=== PATIENT | female | born 1945 | race American Indian/Alaskan Native ===

== ENCOUNTER 2017-03-07 12:47 | Inpatient (IN) | payer MEDICARE ==
--- NOTE | 2017-03-07 13:39 | XRay Report ---
Portable chest: Dyspnea. The heart is enlarged. There is mild vascular congestion. No perivascular edema and no effusion. No pulmonary infiltrate. No change compared to June 03. The trachea is slightly bowed to the right. This finding is unchanged compared to 2013. Impression: Cardiomegaly and mild CHF.
[2017-03-07] MEDS ORDERED: NORCO 5/325 PO ONE (13:49)
[2017-03-07] MEDS ORDERED: NORMODYNE IV ONE (13:49)
--- NOTE | 2017-03-07 13:49 | Emergency Department Report ---
ED General Adult HPI - General Chief complaint: Dyspnea/Respdistress Stated complaint: SOB Time Seen by Provider: 03/07/17 13:18 Source: patient, EMS Mode of arrival: Stretcher Limitations: Other - History of Present Illness Initial comments: Patient complains of anterior chest pain and pressure. She states that she has been having this recurrently since October when her daughter . She also states that she was admitted within the last 2 weeks for similar plates. It would appear that she had a nuclear perfusion study at [facility] and that a cardiac catheterization was not recommended. She sees Dr. Whitmore for her chronic renal insufficiency. She sees Dr. Husain for her cardiomyopathy. The patient admits that she did not take her blood pressure medicine today. -: Gradual, hour(s) Location: chest Radiation: non-radiation Quality: dull Consistency: constant Improves with: none Worsens with: none Treatments Prior to Arrival: none - Related Data Home Medications Medication Instructions Recorded Confirmed Last Taken Aspirin EC [Aspirin Enteric Coated 81 mg PO DAILY 05/03/14 05/03/14 05/02/14 TAB] Atorvastatin [Lipitor] 40 mg PO DAILY 05/03/14 05/03/14 05/02/14 40mg Carvedilol 25 mg PO BID 05/03/14 05/03/14 05/03/14 0600 Clopidogrel Bisulfate [Clopidogrel] 75 mg PO DAILY 05/03/14 05/03/14 05/03/14 0700 FLUoxetine HCL [Fluoxetine HCl] 10 mg PO DAILY 05/03/14 05/03/14 05/02/14 10mg Hydralazine HCl [Apresoline TAB] 25 mg PO BID 05/03/14 05/03/14 05/03/14 25mg Insulin Aspart [NovoLOG Flexpen] 15 units SQ QAC 05/03/14 05/03/14 05/02/14 105units Insulin Glargine,Hum.rec.anlog 25 units SQ HS 05/03/14 05/03/14 05/02/14 [Lantus Solostar] 25units Isosorbide Mononitrate [Isosorbide 30 mg PO DAILY 05/03/14 05/03/14 05/02/14 Mononitrate ER] 30mg Ranolazine ER [Ranexa ER] 500 mg PO BID 05/03/14 05/03/1405/02/14 500mg Torsemide 40 mg PO DAILY 05/03/14 05/03/14 05/02/14 40mg amLODIPine/VALSARTAN [Exforge 1 tab PO DAILY 05/03/14 05/03/14 05/03/14 10-320 mg Tablet] 1 tab Allergies Allergy/AdvReac Type Severity Reaction Status Date / Time Sulfa (Sulfonamide Allergy PASS OUT, Verified 06/05/16 15:32 Antibiotics) ITCHING ED Review of Systems ROS: Stated complaint: SOB Other details as noted in HPI Constitutional: denies: chills, fever Eyes: denies: eye pain, eye discharge, vision change ENT: denies: ear pain, throat pain Respiratory: shortness of breath. denies: cough, wheezing Cardiovascular: chest pain. denies: palpitations Endocrine: no symptoms reported Gastrointestinal: denies: abdominal pain, nausea, diarrhea Genitourinary: denies: urgency, dysuria, discharge Musculoskeletal: denies: back pain, joint swelling, arthralgia Skin: denies: rash, lesions Neurological: denies: headache, weakness, paresthesias Psychiatric: denies: anxiety, depression Hematological/Lymphatic: denies: easy bleeding, easy bruising ED Past Medical Hx - Past Medical History Previous Medical History?: Yes Hx Hypertension: Yes Hx Diabetes: Yes - Surgical History Past Surgical History?: Yes Hx Coronary Stent: Yes - Social History Smoking Status: Never Smoker Substance Use Type: None - Medications Home Medications: Home Medications Medication Instructions Recorded Confirmed Last Taken Type Aspirin EC [Aspirin Enteric Coated 81 mg PO DAILY 05/03/14 05/03/14 05/02/14 History TAB] Atorvastatin [Lipitor] 40 mg PO DAILY 05/03/14 05/03/14 05/02/14 History 40mg Carvedilol 25 mg PO BID 05/03/14 05/03/14 05/03/14 History 0600 Clopidogrel Bisulfate [Clopidogrel] 75 mg PO DAILY 05/03/14 05/03/14 05/03/14 History 0700 FLUoxetine HCL [Fluoxetine HCl] 10 mg PO DAILY 05/03/14 05/03/14 05/02/14 History 10mg Hydralazine HCl [Apresoline TAB] 25 mg PO BID 05/03/14 05/03/14 05/03/14 History 25mg Insulin Aspart [NovoLOG Flexpen] 15 units SQ QAC 05/03/14 05/03/14 05/02/14 History 105units Insulin Glargine,Hum.rec.anlog 25 units SQ HS 05/03/14 05/03/14 05/02/14 History [Lantus Solostar] 25units Isosorbide Mononitrate [Isosorbide 30 mg PO DAILY 05/03/14 05/03/14 05/02/14 History Mononitrate ER] 30mg Ranolazine ER [Ranexa ER] 500 mg PO BID 05/03/14 05/03/14 05/02/14 History 500mg Torsemide 40 mg PO DAILY 05/03/14 05/03/14 05/02/14 History 40mg amLODIPine/VALSARTAN [Exforge 1 tab PO DAILY 05/03/14 05/03/14 05/03/14 History 10-320 mg Tablet] 1 tab ED Physical Exam - General Limitations: Other General appearance: alert, in no apparent distress - Head Head exam: Present: atraumatic, normocephalic - Eye Eye exam: Present: normal appearance, PERRL, EOMI. Absent: scleral icterus - ENT ENT exam: Present: mucous membranes moist - Neck Neck exam: Present: normal inspection. Absent: tenderness, meningismus - Respiratory Respiratory exam: Present: normal lung sounds bilaterally. Absent: respiratory distress - Cardiovascular Cardiovascular Exam: Present: regular rate, normal rhythm, systolic murmur. Absent: diastolic murmur, rubs, gallop - GI/Abdominal GI/Abdominal exam: Present: soft, normal bowel sounds. Absent: distended, tenderness, guarding, rebound, rigid - Extremities Exam Extremities exam: Present: other (1+ pretibial 2+ pedal edema) - Back Exam Back exam: Present: normal inspection. Absent: CVA tenderness (R), CVA tenderness (L) - Neurological Exam Neurological exam: Present: alert, oriented X3, CN II-XII intact. Absent: motor sensory deficit - Psychiatric Psychiatric exam: Present: normal affect, normal mood - Skin Skin exam: Present: warm, dry, intact, normal color, other (intact scars from previous peripheral vascular surgery both lower legs). Absent: rash ED Course Vital Signs 03/07/17 03/07/17 03/07/17 13:13 13:14 13:16 Pulse Rate 77 Respiratory 30 H Rate Blood Pressure 199/126 O2 Sat by Pulse 98 97 98 Oximetry 03/07/17 03/07/17 03/07/17 13:37 13:39 13:41 Pulse Rate 78 80 80 Respiratory 35 H 41 H 40 H Rate Blood Pressure 197/138 197/138 197/138 O2 Sat by Pulse 97 94 94 Oximetry 03/07/17 03/07/17 03/07/17 13:43 13:45 13:47 Pulse Rate 79 78 77 Respiratory 40 H 16 37 H Rate Blood Pressure 197/138 209/121 209/121 O2 Sat by Pulse 93 99 99 Oximetry 03/07/17 03/07/17 03/07/17 13:49 13:51 13:53 Pulse Rate 79 79 78 Respiratory 29 H 18 32 H Rate Blood Pressure 209/121 209/121 209/121 O2 Sat by Pulse 99 96 98 Oximetry 03/07/17 03/07/17 03/07/17 13:55 13:57 13:59 Pulse Rate 77 77 78 Respiratory 29 H 27 H 26 H Rate Blood Pressure 209/121 209/121 209/121 O2 Sat by Pulse 98 96 96 Oximetry 03/07/17 03/07/17 03/07/17 14:00 14:03 14:05 Pulse Rate 77 79 78 Respiratory 35 H 50 H 30 H Rate Blood Pressure 208/106 208/106 208/106 O2 Sat by Pulse 99 97 95 Oximetry 03/07/17 03/07/17 03/07/17 14:07 14:09 14:11 Pulse Rate 78 77 78 Respiratory 26 H 35 H 36 H Rate Blood Pressure 208/106 208/106 208/106 O2 Sat by Pulse 98 98 93 Oximetry 03/07/17 03/07/17 03/07/17 14:13 14:15 14:17 Pulse Rate 79 79 79 Respiratory 40 H 46 H 43 H Rate Blood Pressure 208/106 202/134 202/134 O2 Sat by Pulse 94 95 96 Oximetry 03/07/17 03/07/17 03/07/17 14:19 14:21 14:23 Pulse Rate 77 77 77 Respiratory 29 H 34 H 24 Rate Blood Pressure 202/134 202/134 202/134 O2 Sat by Pulse 97 98 98 Oximetry 03/07/17 03/07/17 03/07/17 14:25 14:27 14:29 Pulse Rate 77 76 77 Respiratory 29 H 33 H 38 H Rate Blood Pressure 202/134 202/134 202/134 O2 Sat by Pulse 97 97 95 Oximetry 03/07/17 03/07/17 03/07/17 14:30 14:32 14:33 Pulse Rate 79 77 58 L Respiratory 36 H 18 Rate Blood Pressure 196/134 202/134 196/134 O2 Sat by Pulse 97 99 Oximetry 03/07/17 03/07/17 03/07/17 14:35 14:37 14:39 Pulse Rate 57 L 57 L 55 L Respiratory 18 13 30 H Rate Blood Pressure 196/134 196/134 196/134 O2 Sat by Pulse 100 99 99 Oximetry 03/07/17 03/07/17 03/07/17 14:41 14:43 14:45 Pulse Rate 59 L 56 L 59 L Respiratory 18 34 H 38 H Rate Blood Pressure 196/134 196/134 196/134 O2 Sat by Pulse 98 99 98 Oximetry 03/07/17 03/07/17 03/07/17 14:46 14:49 14:51 Pulse Rate 57 L 60 61 Respiratory 21 33 H 32 H Rate Blood Pressure 166/98 166/98 166/98 O2 Sat by Pulse 99 94 99 Oximetry 03/07/17 03/07/17 03/07/17 14:53 14:55 14:57 Pulse Rate 59 L 61 60 Respiratory 36 H 43 H 25 H Rate Blood Pressure 166/98 166/98 166/98 O2 Sat by Pulse 99 94 98 Oximetry 03/07/17 03/07/17 03/07/17 14:59 15:00 15:03 Pulse Rate 61 61 61 Respiratory 27 H 33 H 27 H Rate Blood Pressure 166/98 166/92 166/92 O2 Sat by Pulse 97 99 92 Oximetry 03/07/17 03/07/17 03/07/17 15:05 15:07 15:09 Pulse Rate 63 64 62 Respiratory 20 39 H 28 H Rate Blood Pressure 166/92 166/92 166/92 O2 Sat by Pulse 97 97 99 Oximetry 03/07/17 03/07/17 03/07/17 15:11 15:13 15:15 Pulse Rate 65 63 63 Respiratory 18 26 H 23 Rate Blood Pressure 166/92 166/92 152/88 O2 Sat by Pulse 99 98 98 Oximetry - Reevaluation(s) Reevaluation #1: Patient given aspirin, Nitropaste, labetalol. She is referred to Dr. Alex of the hospitalist service further care and management as an inpatient. 03/07/17 15:43 ED Medical Decision Making - Lab Data Result diagrams: 03/07/17 13:18 03/07/17 13:18 Laboratory Results - last 24 hr 03/07/17 03/07/17 03/07/17 13:18 13:18 13:23 WBC 9.0 RBC 4.71 Hgb 12.6 Hct 40.3 MCV 86 MCH 27 L MCHC 31 RDW 18.1 H Plt Count 272 Lymph % (Auto) 18.5 [place] % (Auto) 3.1 Eos % (Auto) 0.2 Baso % (Auto) 0.7 Lymph # 1.7 [place] # 0.3 Eos # 0.0 Baso # 0.1 Seg Neutrophils % 77.5 H Seg Neutrophils # 6.9 PT 14.0 INR 1.03 APTT 32.0 Sodium 146 H Potassium 4.0 Chloride 106.8 Carbon Dioxide 24 Anion Gap 19 BUN 26 H Creatinine 1.9 H Estimated GFR 32 BUN/Creatinine Ratio 14 Glucose 120 H Calcium 8.7 Phosphorus Magnesium Total Bilirubin Direct Bilirubin AST ALT Alkaline Phosphatase Troponin T 0.019 NT-Pro-B Natriuret Pep 88217 H Total Protein Albumin Albumin/Globulin Ratio 03/07/17 13:23 WBC RBC Hgb Hct MCV MCH MCHC RDW Plt Count Lymph % (Auto) [place] % (Auto) Eos % (Auto) Baso % (Auto) Lymph # [place] # Eos # Baso # Seg Neutrophils % Seg Neutrophils # PT INR APTT Sodium Potassium Chloride Carbon Dioxide Anion Gap BUN Creatinine Estimated GFR BUN/Creatinine Ratio Glucose Calcium Phosphorus 3.60 Magnesium 2.30 Total Bilirubin 0.60 Direct Bilirubin < 0.2 AST 36 ALT 43 Alkaline Phosphatase 189 H Troponin T NT-Pro-B Natriuret Pep Total Protein 7.2 Albumin 3.4 L Albumin/Globulin Ratio 0.9 - EKG Data -: EKG Interpreted by Me EKG shows normal: sinus rhythm Rate: normal - EKG Data When compared to previous EKG there are: no significant change Interpretation: LVH (LVH is suggestive), other (left bundle-branch block/ intraventricular conduction delay) - Radiology Data Radiology results: report reviewed interpreted by me: Poor inspiration but radiologist didn't suggestive of early CHF Critical care attestation.: If time is entered above; I have spent that time in minutes in the direct care of this critically ill patient, excluding procedure time. ED Disposition Clinical Impression: CKD (chronic kidney disease), stage III, Accelerated hypertension, Intraventricular conduction delay Chest pain Qualifiers: Chest pain type: unspecified Qualified Code(s): R07.9 - Chest pain, unspecified CHF (congestive heart failure) Qualifiers: Congestive heart failure type: combined Congestive heart failure chronicity: acute on chronic Qualified Code(s): I50.43 - Acute on chronic combined systolic (congestive) and diastolic (congestive) heart failure Disposition: -09 OP ADMIT IP TO THIS HOSP Is pt being admited?: Yes Does the pt Need Aspirin: Yes Condition: Stable Instructions: Hypertension (ED), Chest Pain (ED) Referrals: PRIMARY CARE, [Primary Care Provider] - 3-5 Days Time of Disposition: 15:47
[2017-03-07 13:51] LABS: Basophils % (Auto) 0.7 % (0.0-1.8); Eosinophils % (Auto) 0.2 % (0.0-4.3); Hematocrit 40.3 % (30.3-42.9); Hemoglobin 12.6 gm/dl (10.1-14.3); Mean Corpuscular HGB Conc 31 % (30-34); Mean Corpuscular Hemoglobin 27 pg (28-32); Mean Corpuscular Volume 86 fl (79-97); Platelet Count 272 K/mm3 (140-440); Red Blood Count 4.71 M/mm3 (3.65-5.03); Red Cell Distribution Width 18.1 % (13.2-15.2)
--- NOTE | 2017-03-07 13:53 | History and Physical Report ---
History of Present Illness Chief complaint: I cant breathe, my legs are swollen too History of present illness: 71 YO Female with HTN, DM, Metabolic Syndrome, Obesity, Systolic CHF(EF 30%), Pulmonary HTN, CAD S/P Stent placement presents to ED for evaluation. Pt states that she has experienced shortness of breath and leg swelling over the past two weeks with worsening symptoms over the past day. Pt acknowledges orthopnea, PND as well and chest pressure and decreased exercise tolerance. Pt denies fever, chills, CP, Palpitations, NVD, Syncope, unilateral leg swelling, calf pain, hemoptysis,medication noncompliance. Pt acknowledges dietary noncompliance, and not taking her weight daily and monitoring fluid intake. Pt seen and evaluated in ED and found to be in respiratory distress and placed on supplemental oxygen. Pt is able to protect her airway. Past History Past Medical History: CAD, diabetes, heart failure, hypertension, other ( PUlmonary Hypertension) Past Surgical History: Other (Stent placement) Social history: , lives with family. denies: smoking, alcohol abuse, prescription drug abuse Medications and Allergies Allergies Allergy/AdvReac Type Severity Reaction Status Date / Time Sulfa (Sulfonamide Allergy PASS OUT, Verified 06/05/16 15:32 Antibiotics) ITCHING Home Medications Medication Instructions Recorded Confirmed Last Taken Type Aspirin EC [Aspirin Enteric Coated 81 mg PO DAILY 05/03/14 03/07/17 05/02/14 History TAB] Atorvastatin [Lipitor] 40 mg PO DAILY 05/03/14 03/07/17 05/02/14 History 40mg Carvedilol 25 mg PO BID 05/03/14 03/07/17 05/03/14 History 0600 Hydralazine HCl [Apresoline TAB] 25 mg PO BID 05/03/14 03/07/17 05/03/14 History 25mg Insulin Aspart [NovoLOG Flexpen] 5 units SQ QAC 05/03/14 03/07/17 05/02/14 History 105units Insulin Glargine,Hum.rec.anlog 15 units SQ HS 05/03/14 03/07/17 05/02/14 History [Lantus Solostar] 25units Torsemide 40 mg PO DAILY 05/03/14 03/07/17 05/02/14 History 40mg ALBUTEROL NEB's [Proventil 0.083% 3 ml INHALATION TID PRN 03/07/17 03/07/17 Unknown History NEBS] Arformoterol Nebu [Brovana Nebu] 2 ml INHALATION BID 03/07/17 03/07/17 Unknown History Fluticasone/Vilanterol [Breo 1 inhalation PO QDAY 03/07/17 03/07/17 Unknown History Ellipta 100-25 Mcg INH] Losartan [Cozaar] 50 mg PO QDAY 03/07/17 03/07/17 Unknown History Nortriptyline [Pamelor] 10 mg PO QHS 03/07/17 03/07/17 Unknown History Omeprazole [Omeprazole] 40 mg PO QDAC 03/07/17 03/07/17 Unknown History Ranolazine [Ranexa] 1,000 mg PO BID 03/07/17 03/07/17 Unknown History clonazePAM [Klonopin] 1 mg PO QDAY PRN 03/07/17 03/07/17 Unknown History Review of Systems Constitutional: no weight loss, no weight gain, no fever, no chills, no sweats Ears, nose, mouth and throat: no ear pain, no ear discharge, no tinnitis, no decreased hearing, no nose pain, no nasal congestion, no nasal discharge Breasts: no change in shape, no swelling, no mass Cardiovascular: orthopnea, shortness of breath, dyspnea on exertion, paroxysmal nocturnal dyspnea, leg edema, no chest pain, no palpitations, no edema, no syncope Respiratory: no cough, no cough with sputum, no excessive sputum, no hemoptysis Gastrointestinal: no abdominal pain, no nausea, no vomiting, no diarrhea Genitourinary Female: no pelvic pain, no flank pain Rectal: no pain, no incontinence, no bleeding Musculoskeletal: no neck stiffness, no neck pain, no shooting arm pain, no arm numbness/tingling, no low back pain, no shooting leg pain, no leg numbness/ tingling Integumentary: no rash, no pruritis, no redness, no sores, no wounds Neurological: no head injury, no paralysis, no weakness, no parathesias, no numbness, no tingling, no seizures, no syncope Endocrine: no cold intolerance, no heat intolerance, no polyphagia, no excessive thirst Hematologic/Lymphatic: no easy bruising, no easy bleeding Allergic/Immunologic: no allergic rhinitis, no wheezing Exam - Constitutional Vitals: Temp Pulse Resp BP Pulse Ox 77 30 H 199/126 98 03/07/17 13:16 03/07/17 13:16 03/07/17 13:16 03/07/17 13:16 General appearance: Present: mild distress - EENT Eyes: Present: PERRL ENT: hearing intact, clear oral mucosa - Neck Neck: Present: supple, normal ROM - Respiratory Respiratory: bilateral: diminished, rhonchi - Cardiovascular Heart Sounds: Present: S1 & S2. Absent: rub, click - Extremities Extremities: pulses symmetrical, No edema Extremity abnormal: edema Peripheral Pulses: within normal limits - Abdominal General gastrointestinal: Present: soft, non-tender, non-distended, normal bowel sounds Female genitourinary: Present: normal - Integumentary Integumentary: Present: clear, warm, dry - Musculoskeletal Musculoskeletal: gait normal, strength equal bilaterally - Psychiatric Psychiatric: appropriate mood/affect, intact judgment & insight - Neurologic Neurologic: CNII-XII intact, moves all extremities Results - Labs CBC & Chem 7: 03/07/17 13:18 03/07/17 13:18 Labs: Abnormal lab results 03/07/17 Range/Units 13:18 MCH 27 L (28-32) pg RDW 18.1 H (13.2-15.2) % Seg Neutrophils % 77.5 H (40.0-70.0) % Assessment and Plan - Patient Problems (1) CHF (congestive heart failure) Current Visit: Yes Status: Acute Qualifiers: Congestive heart failure type: combined Congestive heart failure chronicity : acute on chronic Qualified Code(s): I50.43 - Acute on chronic combined systolic (congestive) and diastolic (congestive) heart failure Plan to address problem: Fluid restriction, Afterload reduction, monitor uop q shift, negative fluid balance, daily weight, serial cardiac enzymes, telemetry monitoring, Cardiology team consulted, Pt education regarding dietary compliance, low sodium diet, diuretic therapy (2) Acute respiratory failure Current Visit: Yes Status: Acute Qualifiers: Respiratory failure complication: R Plan to address problem: Supplemental oxygen, nebs, treat CHF, NIPPV as clinically indicated, (3) CAD (coronary artery disease) Current Visit: Yes Status: Acute Qualifiers: Coronary Disease-Associated Artery/Lesion type: [place] artery [place] vs. transplanted heart: [place] heart Associated angina: without angina Qualified Code(s): I25.10 - Atherosclerotic heart disease of [place] coronary artery without angina pectoris Plan to address problem: continue medical management, lipid panel, supportive care. (4) Diabetes Current Visit: Yes Status: Acute Qualifiers: Diabetes mellitus type: D Diabetes mellitus complication status: D Diabetes mellitus complication detail: D Diabetic retinopathy severity: D Proliferative retinopathy type: P Diabetes mellitus macular edema: D Diabetes mellitus intermediate frame tender insulin use: D Laterality: L Chronic kidney disease stage: C Plan to address problem: ADA diet, insulin accu check (5) DVT prophylaxis Current Visit: Yes Status: Acute
[2017-03-07 13:57] LABS: INR 1.03 (0.87-1.13)
[2017-03-07 14:14] LABS: Calcium 8.7 mg/dL (8.4-10.2); Chloride 106.8 mmol/L (98-107)
[2017-03-07 14:16] LABS: Alanine Aminotransferase 43 units/L (7-56); Albumin 3.4 g/dL (3.9-5); Albumin/Globulin Ratio 0.9 %; Alkaline Phosphatase 189 units/L (35-129); Total Protein 7.2 g/dL (6.3-8.2)
[2017-03-07 14:17] LABS: Bilirubin,Direct < 0.2 mg/dL (0-0.2)
[2017-03-07] MEDS ORDERED: MILK OF MAGNESIA PO PRN (15:46)
[2017-03-07] MEDS ORDERED: ZOFRAN IV PRN (15:46)
[2017-03-07] MEDS ORDERED: DULCOLAX PR PRN (15:46)
[2017-03-07] MEDS ORDERED: BABY ASPIRIN PO ONE (15:48)
[2017-03-07] MEDS ORDERED: NON-FORMULARY (Insulin Aspart [Novolog Flexpen] 15 UNITS) SQ SCH (16:30)
[2017-03-07] MEDS ORDERED: BABY ASPIRIN ONE (16:58)
[2017-03-07] MEDS ORDERED: LASIX ONE (19:00)
[2017-03-07] MEDS: LASIX IV SCH (19:00)
[2017-03-07] MEDS ORDERED: INSULIN GLARGINE HUM REC ANLOG 25 UNIT SQ SCH (22:00)
[2017-03-07] MEDS ORDERED: LEVEMIR SUB-Q SCH (22:00)
[2017-03-07] MEDS ORDERED: NON-FORMULARY (Hydralazine Hcl [Apresoline Tab] 25 MG) PO SCH (22:00)
[2017-03-07] MEDS: APRESOLINE PO SCH (22:44)
[2017-03-07] MEDS: RANEXA ER PO SCH (22:44)
[2017-03-07] MEDS: COREG PO SCH (22:45)
[2017-03-08] MEDS: LASIX IV SCH ×2 (05:51→19:04)
[2017-03-08] MEDS: PROVENTIL IH PRN ×2 (09:40→14:00)
[2017-03-08] MEDS ORDERED: VALSARTAN PO SCH (10:00)
[2017-03-08] MEDS ORDERED: TORSEMIDE 40 MG PO SCH (10:00)
[2017-03-08] MEDS ORDERED: AMLODIPINE PO SCH (10:00)
[2017-03-08] MEDS ORDERED: FLUOXETINE HCL 10 MG PO SCH (10:00)
[2017-03-08] MEDS: HALFPRIN EC PO SCH (10:37)
[2017-03-08] MEDS: RANEXA ER PO SCH ×2 (10:37→22:20)
[2017-03-08] MEDS: DIOVAN PO SCH (10:38)
[2017-03-08] MEDS: IMDUR PO SCH (10:40)
[2017-03-08] MEDS: PLAVIX PO SCH (10:40)
[2017-03-08] MEDS: NORVASC PO SCH (10:41)
[2017-03-08] MEDS: APRESOLINE PO SCH ×2 (10:41→22:21)
[2017-03-08] MEDS: COREG PO SCH ×2 (10:42→22:21)
[2017-03-08] MEDS: PROzac PO SCH ×2 (10:43→10:49)
[2017-03-08] MEDS: NOVOLOG SUB-Q SCH ×4 (10:47→22:22)
--- NOTE | 2017-03-08 11:06 | Consultation ---
History of Present Illness Consult date: 03/08/17 Requesting physician: KEV BREAUX Consult reason: congestive heart failure History of present illness: 71 YO Female with history of ischemic cardiomyopathy EF 30% , CAD status post multiple PCI , HTN, DM, Obesity, spelled currently admitted to the hospital with progressive shortness of breath. Pt reports worsening shortness of breath and leg swelling over the past two weeks with acute worsening symptoms over the past day. Pt acknowledges orthopnea, PND as well and chest pressure and decreased exercise tolerance. Past History Past Medical History: CAD, diabetes, heart failure, hypertension, other ( PUlmonary Hypertension) Past Surgical History: Other (Stent placement) Social history: , lives with family. denies: smoking, alcohol abuse, prescription drug abuse Medications and Allergies Allergies Allergy/AdvReac Type Severity Reaction Status Date / Time Sulfa (Sulfonamide Allergy PASS OUT, Verified 06/05/16 15:32 Antibiotics) ITCHING Home Medications Medication Instructions Recorded Confirmed Last Taken Type Aspirin EC [Aspirin Enteric Coated 81 mg PO DAILY 05/03/14 03/07/17 05/02/14 History TAB] Atorvastatin [Lipitor] 40 mg PO DAILY 05/03/14 03/07/17 05/02/14 History 40mg Carvedilol 25 mg PO BID 05/03/14 03/07/17 05/03/14 History 0600 Hydralazine HCl [Apresoline TAB] 25 mg PO BID 05/03/14 03/07/17 05/03/14 History 25mg Insulin Aspart [NovoLOG Flexpen] 5 units SQ QAC 05/03/14 03/07/17 05/02/14 History 105units Insulin Glargine,Hum.rec.anlog 15 units SQ HS 05/03/14 03/07/17 05/02/14 History [Lantus Solostar] 25units Torsemide 40 mg PO DAILY 05/03/14 03/07/17 05/02/14 History 40mg ALBUTEROL NEB's [Proventil 0.083% 3 ml INHALATION TID PRN 03/07/17 03/07/17 Unknown History NEBS] Arformoterol Nebu [Brovana Nebu] 2 ml INHALATION BID 03/07/17 03/07/17 Unknown History Fluticasone/Vilanterol [Breo 1 inhalation PO QDAY 03/07/17 03/07/17 Unknown History Ellipta 100-25 Mcg INH] Losartan [Cozaar] 50 mg PO QDAY 03/07/17 03/07/17 Unknown History Nortriptyline [Pamelor] 10 mg PO QHS 03/07/17 03/07/17 Unknown History Omeprazole [Omeprazole] 40 mg PO QDAC 03/07/17 03/07/17 Unknown History Ranolazine [Ranexa] 1,000 mg PO BID 03/07/17 03/07/17 Unknown History clonazePAM [Klonopin] 1 mg PO QDAY PRN 03/07/17 03/07/17 Unknown History Active Meds: Active Medications Acetaminophen (Tylenol) 650 mg PO Q4H PRN PRN Reason: Pain MILD(1-3)/Fever >100.5/BERRY Albuterol (Proventil) 2.5 mg IH Q4HRT PRN PRN Reason: Shortness Of Breath Last Admin: 03/08/17 09:40 Dose: 2.5 mg Amlodipine Besylate (Norvasc) 10 mg PO DAILY [facility] Last Admin: 03/08/17 10:41 Dose: 10 mg Aspirin (Halfprin Ec) 81 mg PO DAILY [facility] Last Admin: 03/08/17 10:37 Dose: 81 mg Atorvastatin Calcium (Lipitor) 40 mg PO DAILY [facility] Last Admin: 03/08/17 10:43 Dose: 40 mg Bisacodyl (Dulcolax) 10 mg ID QDAY PRN PRN Reason: Constipation unrelieved by MOM Carvedilol (Coreg) 25 mg PO BID [facility] Last Admin: 03/08/17 10:42 Dose: 25 mg Clopidogrel Bisulfate (Plavix) 75 mg PO DAILY [facility] Last Admin: 03/08/17 10:40 Dose: Not Given Fluoxetine HCl (Prozac) 10 mg PO QDAY [facility] Last Admin: 03/08/17 10:49 Dose: Not Given Furosemide (Lasix) 20 mg IV 0600,1800 [facility] Last Admin: 03/08/17 05:51 Dose: 20 mg Hydralazine HCl (Apresoline) 25 mg PO BID [facility] Last Admin: 03/08/17 10:41 Dose: 25 mg Insulin Aspart (Novolog) 15 units SUB-Q AC [facility] Last Admin: 03/08/17 10:47 Dose: Not Given Insulin Detemir (Levemir) 25 units SUB-Q QHS [facility] Last Admin: 03/07/17 22:45 Dose: Not Given Isosorbide Mononitrate (Imdur) 30 mg PO DAILY [facility] Last Admin: 03/08/17 10:40 Dose: 30 mg Magnesium Hydroxide (Milk Of Magnesia) 30 ml PO Q4H PRN PRN Reason: Constipation Miscellaneous Medication (Torsemide [Torsemide]) 40 mg PO DAILY [facility] Ondansetron HCl (Zofran) 4 mg IV Q8H PRN PRN Reason: N/V unrelieved by Karyna Ranolazine (Ranexa Er) 500 mg PO BID [facility] Last Admin: 03/08/17 10:37 Dose: 500 mg Valsartan (Diovan) 320 mg PO QDAY [facility] Last Admin: 03/08/17 10:38 Dose: 320 mg Review of Systems All systems: negative (as mentioned in the H&P) Physical Examination Vital Signs Pulse Ox 98 03/07/17 13:13 Narrative exam: Physical examination General.: Moderately obese mild distress noted HEENT: Moist mucous membranes, extraocular muscles intact, no lymphadenopathy Neck: supple mildly elevated JVP. Cardiac: S1-S2 heard Lungs: Poor air entry with faint bilateral crackles Abdomen: soft , nontender, nondistended, bowel sounds positive Extremities: 2+ bilateral edema Skin: no rash or lesions Neurologic: no gross focal deficits, hard of hearing Psych: appropriate behavior, appropriate mood, corporative, judgment intact Results 03/07/17 13:18 03/07/17 13:18 EKG interpretations - Telemetry EKG Rhythm: Sinus Rhythm Assessment and Plan Impression 1. Shortness of breath and edema symptoms clinical exam and laboratory findings suggestive of acute on chronic systolic congestive heart failure. Exacerbation factors include dietary and medical noncompliance. 2. Ischemic cardiomyopathy stage B with class III symptoms 3. Coronary angioplasty status. PCI of the right coronary artery patent by recent cardiac 4. Coronary artery disease without angina pectoris class II symptoms 5. Moderate to severe pulmonary hypertension most likely group to pulmonary hypertension 6. Chronic renal failure Plan Agree with IV diuretics and increase dose as tolerated Continue Coreg and hydralazine and Isordil Monitor renal function At some point but renal function stabilizes and 1.7-24 had low-dose OTTO inhibitor. Patient will be evaluated for an AICD as an outpatient
--- NOTE | 2017-03-08 14:27 | Progress Note ---
Assessment and Plan Assessment and plan: 71 YO Female with HTN, DM, Metabolic Syndrome, Obesity, Systolic CHF(EF 30%), Pulmonary HTN, CAD S/P Stent placement presents to ED for evaluation. Pt states that she has experienced shortness of breath and leg swelling over the past two weeks with worsening symptoms over the past day. Pt acknowledges orthopnea, PND as well and chest pressure and decreased exercise tolerance. Pt denies fever, chills, CP, Palpitations, NVD, Syncope, unilateral leg swelling, calf pain, hemoptysis,medication noncompliance. Pt acknowledges dietary noncompliance, and not taking her weight daily and monitoring fluid intake. Pt seen and evaluated in ED and found to be in respiratory distress and placed on supplemental oxygen. Pt is able to protect her airway. Acute exacerbation of chronic systolic CHF Ischemic cardiomyopathy continue iv diuretics, cardiology input appreciateduretics, optimize meds, As per cardiology, patient be evaluated as an outpatient for AICD Pulmonary hypertension continue ARB Acute hypoxic respiratory failure Was likely due to CHF exacerbation, continue oxygen supplementation and treat underlying cause CAD (coronary artery disease) She denies chest pain, continue home medications medications Hypoglycemia/Diabetes Patient admits to hypoglycemia at home, Hold all home insulins and only do sliding scale for now, check an A1c Chronic renal failure stage IV -Give diuretics judiciously, avoid nephrotoxic medications -Creatinine is at baseline History Interval history: continues to have sob, orthopnea Admits to having low glc at home, sometimes as low as 17 especially in the am Review of systems Constitutional: No fevers, no malaise, no joint pains CVS: No chest pain, admits orthopnea, ESQUIVEL and LE edema GI: No abdominal pain, no diarrhea, no vomiting, no constipation Respiratory: No shortness of breath, no wheezing, no coughing or Hospitalist Physical - Physical exam Narrative exam: General.: Appears well, no distress, nontoxic HEENT: Moist mucous membranes, extraocular muscles intact, no lymphadenopathy Neck: supple Cardiac: S1-S2 heard Lungs: Bibasilar crackles Abdomen: soft , nontender, nondistended, bowel sounds positive Extremities: no edema clubbing or cyanosis Skin: One plus bipedal edema Neurologic: no gross focal deficits Psych: appropriate behavior, appropriate mood, corporative, judgment intact - Constitutional Vitals: Temp Pulse Resp BP Pulse Ox 98.0 F 61 16 113/43 96 03/08/17 12:11 03/08/17 12:47 03/08/17 12:11 03/08/17 12:11 03/08/17 12:12 General appearance: Present: mild distress Results - Labs CBC & Chem 7: 03/07/17 13:18 03/07/17 13:18 Labs: Laboratory Last Values WBC 9.0 K/mm3 (4.5-11.0) 03/07/17 13:18 RBC 4.71 M/mm3 (3.65-5.03) 03/07/17 13:18 Hgb 12.6 gm/dl (10.1-14.3) 03/07/17 13:18 Hct 40.3 % (30.3-42.9) 03/07/17 13:18 MCV 86 fl (79-97) 03/07/17 13:18 MCH 27 pg (28-32) L 03/07/17 13:18 MCHC 31 % (30-34) 03/07/17 13:18 RDW 18.1 % (13.2-15.2) H 03/07/17 13:18 Plt Count 272 K/mm3 (140-440) 03/07/17 13:18 Lymph % (Auto) 18.5 % (13.4-35.0) 03/07/17 13:18 [place] % (Auto) 3.1 % (0.0-7.3) 03/07/17 13:18 Eos % (Auto) 0.2 % (0.0-4.3) 03/07/17 13:18 Baso % (Auto) 0.7 % (0.0-1.8) 03/07/17 13:18 Lymph # 1.7 K/mm3 (1.2-5.4) 03/07/17 13:18 [place] # 0.3 K/mm3 (0.0-0.8) 03/07/17 13:18 Eos # 0.0 K/mm3 (0.0-0.4) 03/07/17 13:18 Baso # 0.1 K/mm3 (0.0-0.1) 03/07/17 13:18 Seg Neutrophils % 77.5 % (40.0-70.0) H 03/07/17 13:18 Seg Neutrophils # 6.9 K/mm3 (1.8-7.7) 03/07/17 13:18 PT 14.0 Sec. (12.2-14.9) 03/07/17 13:23 INR 1.03 (0.87-1.13) 03/07/17 13:23 APTT 32.0 Sec. (24.2-36.6) 03/07/17 13:23 Sodium 146 mmol/L (137-145) H 03/07/17 13:18 Potassium 4.0 mmol/L (3.6-5.0) 03/07/17 13:18 Chloride 106.8 mmol/L (98-107) 03/07/17 13:18 Carbon Dioxide 24 mmol/L (22-30) 03/07/17 13:18 Anion Gap 19 mmol/L 03/07/17 13:18 BUN 26 mg/dL (7-17) H 03/07/17 13:18 Creatinine 1.9 mg/dL (0.7-1.2) H 03/07/17 13:18 Estimated GFR 32 ml/min 03/07/17 13:18 BUN/Creatinine Ratio 14 % 03/07/17 13:18 Glucose 120 mg/dL (65-100) H 03/07/17 13:18 POC Glucose 91 (70-105) 03/07/17 22:07 Calcium 8.7 mg/dL (8.4-10.2) 03/07/17 13:18 Phosphorus 3.60 mg/dL (2.5-4.5) 03/07/17 13:23 Magnesium 2.30 mg/dL (1.7-2.3) 03/07/17 13:23 Total Bilirubin 0.60 mg/dL (0.1-1.2) 03/07/17 13:23 Direct Bilirubin < 0.2 mg/dL (0-0.2) 03/07/17 13:23 AST 36 units/L (5-40) 03/07/17 13:23 ALT 43 units/L (7-56) 03/07/17 13:23 Alkaline Phosphatase 189 units/L (35-129) H 03/07/17 13:23 Troponin T 0.019 ng/mL (0.00-0.029) 03/07/17 13:18 NT-Pro-B Natriuret Pep 02698 pg/mL (0-900) H 03/07/17 13:18 Total Protein 7.2 g/dL (6.3-8.2) 03/07/17 13:23 Albumin 3.4 g/dL (3.9-5) L 03/07/17 13:23 Albumin/Globulin Ratio 0.9 % 03/07/17 13:23
[2017-03-08] MEDS ORDERED: D50W (25GM) Syringe IV PRN (15:32)
[2017-03-08] MEDS ORDERED: PROVENTIL IH PRN (20:00)
[2017-03-09] MEDS: LASIX IV SCH ×2 (06:09→19:12)
[2017-03-09] MEDS: NOVOLOG SUB-Q SCH ×5 (08:44→22:42)
--- NOTE | 2017-03-09 10:29 | Progress Note ---
Assessment and Plan Impression 1. Shortness of breath and edema symptoms clinical exam and laboratory findings suggestive of acute on chronic systolic congestive heart failure. Exacerbation factors include dietary and medical noncompliance. 2. Ischemic cardiomyopathy stage B with class III symptoms 3. Coronary angioplasty status. PCI of the right coronary artery patent by recent cardiac cath 4. Coronary artery disease without angina pectoris class II symptoms 5. Moderate to severe pulmonary hypertension most likely group 2 pulmonary hypertension 6. Chronic renal failure Plan Agree with IV diuretics Continue Coreg and hydralazine and Isordil Monitor renal function At some point but renal function stabilizes and 1.7-24 had low-dose OTTO inhibitor. Patient will be evaluated for an AICD as an outpatient Subjective Date of service: 03/09/17 Principal diagnosis: congestive heart failure Interval history: Patient looks and feels much better today Objective Vital Signs Temp Pulse Pulse Pulse Resp Resp BP 03/09/17 08:40 62 03/09/17 08:39 97.5 F L 63 22 140/75 03/09/17 05:30 98.3 F 61 20 03/08/17 23:45 97.6 F 56 L 21 96/43 03/08/17 22:52 69 18 03/08/17 22:45 89 16 03/08/17 22:21 63 123/64 03/08/17 22:00 60 63 22 03/08/17 21:22 03/08/17 19:10 98.4 F 62 22 123/64 03/08/17 17:23 58 L 120/62 03/08/17 15:43 03/08/17 12:47 61 03/08/17 12:12 53 L 03/08/17 12:11 98.0 F 53 L 16 113/43 03/08/17 12:05 98.0 F 61 16 137/66 03/08/17 10:56 63 03/08/17 10:42 63 160/92 03/08/17 10:41 63 160/92 03/08/17 10:40 63 160/92 03/08/17 10:38 63 160/92 BP Pulse Ox 03/09/17 08:40 99 03/09/17 08:39 99 03/09/17 05:30 120/57 98 03/08/17 23:45 98 03/08/17 22:52 03/08/17 22:45 03/08/17 22:21 03/08/17 22:00 99 03/08/17 21:22 98 03/08/17 19:10 97 03/08/17 17:23 98 03/08/17 15:43 98 03/08/17 12:47 03/08/17 12:12 96 03/08/17 12:11 97 03/08/17 12:05 99 03/08/17 10:56 03/08/17 10:42 03/08/17 10:41 03/08/17 10:40 03/08/17 10:38 - Physical Examination Narrative exam: Physical examination General.: Moderately obese mild distress noted HEENT: Moist mucous membranes, extraocular muscles intact, no lymphadenopathy Neck: supple mildly elevated JVP. Cardiac: S1-S2 heard Lungs: Poor air entry with faint bilateral crackles Abdomen: soft , nontender, nondistended, bowel sounds positive Extremities: 2+ bilateral edema Skin: no rash or lesions Neurologic: no gross focal deficits, hard of hearing Psych: appropriate behavior, appropriate mood, corporative, judgment intact
[2017-03-09] MEDS: PROVENTIL IH SCH ×3 (10:30→20:43)
[2017-03-09] MEDS: IMDUR PO SCH (11:23)
[2017-03-09] MEDS: COREG PO SCH ×2 (11:25→22:41)
[2017-03-09] MEDS: RANEXA ER PO SCH ×2 (11:25→22:40)
[2017-03-09] MEDS: PROzac PO SCH (11:25)
[2017-03-09] MEDS: DIOVAN PO SCH (11:26)
[2017-03-09] MEDS: APRESOLINE PO SCH ×2 (11:26→22:40)
[2017-03-09] MEDS: HALFPRIN EC PO SCH (11:26)
[2017-03-09] MEDS: PLAVIX PO SCH (11:27)
[2017-03-09] MEDS: NORVASC PO SCH (11:27)
--- NOTE | 2017-03-09 13:44 | Progress Note ---
Assessment and Plan Assessment and plan: 71 YO Female with HTN, DM, Metabolic Syndrome, Obesity, Systolic CHF(EF 30%), Pulmonary HTN, CAD S/P Stent placement presents to ED for evaluation. Pt states that she has experienced shortness of breath and leg swelling over the past two weeks with worsening symptoms over the past day. Pt acknowledges orthopnea, PND as well and chest pressure and decreased exercise tolerance. Pt denies fever, chills, CP, Palpitations, NVD, Syncope, unilateral leg swelling, calf pain, hemoptysis,medication noncompliance. Pt acknowledges dietary noncompliance, and not taking her weight daily and monitoring fluid intake. Pt seen and evaluated in ED and found to be in respiratory distress and placed on supplemental oxygen. Pt is able to protect her airway. Acute exacerbation of chronic systolic CHF, EF 30%, ICM Ischemic cardiomyopathy continue iv diuretics, cardiology input appreciated, continue diuretics, optimize meds, As per cardiology, patient be evaluated as an outpatient for AICD Pulmonary hypertension continue ARB Acute hypoxic respiratory failure Was likely due to CHF exacerbation, continue oxygen supplementation and treat underlying cause CAD (coronary artery disease) She denies chest pain, continue home medications medications Hypoglycemia/Diabetes Patient admits to hypoglycemia at home, hold lantus, only giving pre-meal insulin and SSI Chronic renal failure stage IV -Give diuretics judiciously, avoid nephrotoxic medications -Creatinine is at baseline dvt ppx -lovenox renally dosed History Interval history: continues to have sob, orthopnea Admits to having low glc at home, sometimes as low as 17 especially in the am Review of systems Constitutional: No fevers, no malaise, no joint pains CVS: No chest pain, admits orthopnea, ESQUIVEL and LE edema GI: No abdominal pain, no diarrhea, no vomiting, no constipation Respiratory: some SOB, no wheezing, no coughing Hospitalist Physical - Physical exam Narrative exam: General.: Appears well, no distress, nontoxic HEENT: Moist mucous membranes, extraocular muscles intact, no lymphadenopathy Neck: supple Cardiac: S1-S2 heard Lungs: Bibasilar crackles Abdomen: soft , nontender, nondistended, bowel sounds positive Extremities: no edema clubbing or cyanosis Skin: One plus bipedal edema Neurologic: no gross focal deficits Psych: appropriate behavior, appropriate mood, corporative, poor memory, evidence of senile dementia - Constitutional Vitals: Temp Pulse Resp BP Pulse Ox 98.2 F 64 20 151/82 100 03/09/17 11:29 03/09/17 11:30 03/09/17 11:29 03/09/17 11:29 03/09/17 11:30 Results - Labs CBC & Chem 7: 03/07/17 13:18 03/07/17 13:18 Labs: Laboratory Last Values WBC 9.0 K/mm3 (4.5-11.0) 03/07/17 13:18 RBC 4.71 M/mm3 (3.65-5.03) 03/07/17 13:18 Hgb 12.6 gm/dl (10.1-14.3) 03/07/17 13:18 Hct 40.3 % (30.3-42.9) 03/07/17 13:18 MCV 86 fl (79-97) 03/07/17 13:18 MCH 27 pg (28-32) L 03/07/17 13:18 MCHC 31 % (30-34) 03/07/17 13:18 RDW 18.1 % (13.2-15.2) H 03/07/17 13:18 Plt Count 272 K/mm3 (140-440) 03/07/17 13:18 Lymph % (Auto) 18.5 % (13.4-35.0) 03/07/17 13:18 [place] % (Auto) 3.1 % (0.0-7.3) 03/07/17 13:18 Eos % (Auto) 0.2 % (0.0-4.3) 03/07/17 13:18 Baso % (Auto) 0.7 % (0.0-1.8) 03/07/17 13:18 Lymph # 1.7 K/mm3 (1.2-5.4) 03/07/17 13:18 [place] # 0.3 K/mm3 (0.0-0.8) 03/07/17 13:18 Eos # 0.0 K/mm3 (0.0-0.4) 03/07/17 13:18 Baso # 0.1 K/mm3 (0.0-0.1) 03/07/17 13:18 Seg Neutrophils % 77.5 % (40.0-70.0) H 03/07/17 13:18 Seg Neutrophils # 6.9 K/mm3 (1.8-7.7) 03/07/17 13:18 PT 14.0 Sec. (12.2-14.9) 03/07/17 13:23 INR 1.03 (0.87-1.13) 03/07/17 13:23 APTT 32.0 Sec. (24.2-36.6) 03/07/17 13:23 Sodium 146 mmol/L (137-145) H 03/07/17 13:18 Potassium 4.0 mmol/L (3.6-5.0) 03/07/17 13:18 Chloride 106.8 mmol/L (98-107) 03/07/17 13:18 Carbon Dioxide 24 mmol/L (22-30) 03/07/17 13:18 Anion Gap 19 mmol/L 03/07/17 13:18 BUN 26 mg/dL (7-17) H 03/07/17 13:18 Creatinine 1.9 mg/dL (0.7-1.2) H 03/07/17 13:18 Estimated GFR 32 ml/min 03/07/17 13:18 BUN/Creatinine Ratio 14 % 03/07/17 13:18 Glucose 120 mg/dL (65-100) H 03/07/17 13:18 POC Glucose 223 (70-105) H 03/09/17 11:30 Hemoglobin A1c 7.3 % (4-6) H 03/09/17 05:53 Calcium 8.7 mg/dL (8.4-10.2) 03/07/17 13:18 Phosphorus 3.60 mg/dL (2.5-4.5) 03/07/17 13:23 Magnesium 2.30 mg/dL (1.7-2.3) 03/07/17 13:23 Total Bilirubin 0.60 mg/dL (0.1-1.2) 03/07/17 13:23 Direct Bilirubin < 0.2 mg/dL (0-0.2) 03/07/17 13:23 AST 36 units/L (5-40) 03/07/17 13:23 ALT 43 units/L (7-56) 03/07/17 13:23 Alkaline Phosphatase 189 units/L (35-129) H 03/07/17 13:23 Troponin T 0.019 ng/mL (0.00-0.029) 03/07/17 13:18 NT-Pro-B Natriuret Pep 15347 pg/mL (0-900) H 03/07/17 13:18 Total Protein 7.2 g/dL (6.3-8.2) 03/07/17 13:23 Albumin 3.4 g/dL (3.9-5) L 03/07/17 13:23 Albumin/Globulin Ratio 0.9 % 03/07/17 13:23
[2017-03-10] MEDS: LASIX IV SCH ×2 (06:13→18:58)
[2017-03-10] MEDS: PROVENTIL IH SCH ×3 (07:58→20:23)
[2017-03-10] MEDS: NOVOLOG SUB-Q SCH ×6 (09:23→18:59)
[2017-03-10] MEDS: LOVENOX SUB-Q SCH (09:28)
[2017-03-10 09:30] LABS: Calcium 8.2 mg/dL (8.4-10.2); Chloride 107.6 mmol/L (98-107); Potassium 4.2 mmol/L (3.6-5.0)
[2017-03-10] MEDS: NORVASC PO SCH (09:31)
[2017-03-10] MEDS: DIOVAN PO SCH (09:32)
[2017-03-10] MEDS: APRESOLINE PO SCH ×2 (09:33→22:43)
[2017-03-10] MEDS: RANEXA ER PO SCH ×2 (09:33→22:42)
[2017-03-10] MEDS: IMDUR PO SCH (09:34)
[2017-03-10] MEDS: COREG PO SCH ×2 (09:34→22:42)
[2017-03-10] MEDS: HALFPRIN EC PO SCH (09:35)
[2017-03-10] MEDS: PROzac PO SCH (09:36)
--- NOTE | 2017-03-10 11:29 | Progress Note ---
Assessment and Plan Acute systolic congestive heart failure Hx of Ischemic cardiomyopathy EF 30-35% 05/2016 Hx of CAD patent RCA stents on [facility] 05/2016 Moderate to severe Pulmonary hypertension Chronic renal failure Hypertension Diabetes mellitus LBBB, chronic Continue medical therapy for coronary disease and systolic heart failure. Subjective Date of service: 03/10/17 Principal diagnosis: congestive heart failure Interval history: Patient reports she is feeling better. Objective Vital Signs Temp Pulse Pulse Pulse Resp Resp BP 03/10/17 11:10 97.7 F 64 18 113/53 03/10/17 10:00 03/10/17 09:34 69 03/10/17 09:33 69 03/10/17 09:32 69 03/10/17 09:31 69 03/10/17 08:25 65 18 03/10/17 08:19 98.9 F 65 18 03/10/17 08:15 64 18 03/10/17 05:32 98.3 F 64 20 135/60 03/10/17 00:47 97.6 F 60 22 125/54 03/09/17 22:41 63 131/67 03/09/17 22:40 63 131/67 03/09/17 22:00 65 63 20 03/09/17 20:43 63 16 03/09/17 20:25 97.5 F L 63 22 131/67 03/09/17 17:05 98.3 F 60 18 107/56 03/09/17 11:30 64 03/09/17 11:29 98.2 F 64 20 151/82 03/09/17 11:27 64 03/09/17 11:26 64 BP Pulse Ox 03/10/17 11:10 100 03/10/17 10:00 99 03/10/17 09:34 03/10/17 09:33 03/10/17 09:32 03/10/17 09:31 03/10/17 08:25 03/10/17 08:19 130/61 94 03/10/17 08:15 03/10/17 05:32 99 03/10/17 00:47 95 03/09/17 22:41 03/09/17 22:40 03/09/17 22:00 99 03/09/17 20:43 100 03/09/17 20:25 99 03/09/17 17:05 98 03/09/17 11:30 100 03/09/17 11:29 99 03/09/17 11:27 03/09/17 11:26 - Physical Examination General: No Apparent Distress Neck: Positive: trachea midline Cardiac: Positive: Reg Rate and Rhythm - Labs and Meds Comprehensive Metabolic Panel 03/10/17 Range/Units 08:35 Sodium 146 H (137-145) mmol/L Potassium 4.2 (3.6-5.0) mmol/L Chloride 107.6 H (98-107) mmol/L Carbon Dioxide 26 (22-30) mmol/L BUN 32 H (7-17) mg/dL Creatinine 3.1 H D (0.7-1.2) mg/dL Glucose 131 H (65-100) mg/dL Calcium 8.2 L (8.4-10.2) mg/dL
--- NOTE | 2017-03-10 15:18 | Progress Note ---
Assessment and Plan /Acute hypoxic respiratory failure Was likely due to CHF exacerbation, continue oxygen supplementation and treat underlying cause /Acute exacerbation of chronic systolic CHF, EF 30%, ICM Ischemic cardiomyopathy continue iv diuretics, cardiology input appreciated, continue diuretics, optimize meds, As per cardiology, patient be evaluated as an outpatient for AICD /Pulmonary hypertension continue ARB /CAD (coronary artery disease) She denies chest pain, continue home medications medications /Hypoglycemia/Diabetes Patient admits to hypoglycemia at home, hold lantus, only giving pre-meal insulin and SSI /Jasen on CKD -Give diuretics judiciously, avoid nephrotoxic medications -Creatinine today 3.1, cr was 1.9 on presentation - will cont to monitor, consult nephrology if continue to get worse /Dvt ppx -lovenox renally dosed Brief History: 71 YO Female with HTN, DM, Metabolic Syndrome, Obesity, Systolic CHF(EF 30%),Pulmonary HTN, CAD S/P Stent placement presents to ED for shortness of breath and leg swelling over the past two weeks. Pt acknowledged dietary noncompliance, and not taking her weight daily and monitoring fluid intake. Pt seen and evaluated in ED and found to be in respiratory distress and placed on supplemental oxygen. Hospitalist Physical - Physical exam Narrative exam: General.: Appears well, no distress, nontoxic HEENT: Moist mucous membranes, extraocular muscles intact, no lymphadenopathy Neck: supple Cardiac: S1-S2 heard Lungs: Bibasilar crackles Abdomen: soft , nontender, nondistended, bowel sounds positive Extremities: no edema clubbing or cyanosis Skin: One plus bipedal edema Neurologic: no gross focal deficits Psych: corporative, poor memory, evidence of senile dementia Subjective Date of service: 03/10/17 Principal diagnosis: congestive heart failure Interval history: pt seen and examined continues to have sob, orthopnea appears very lethargic and c/o generalized weakness Objective - Constitutional Vitals: Vital Signs - 12hr 03/10/17 03/10/17 03/10/17 05:32 08:15 08:19 Temperature 98.3 F 98.9 F Pulse Rate 64 65 Pulse Rate [ 64 Anterior Right Upper Lobe] Respiratory 20 18 Rate Respiratory 18 Rate [Anterior Right Upper Lobe] Blood Pressure 135/60 Blood Pressure 130/61 [Right] O2 Sat by Pulse 99 94 Oximetry 03/10/17 03/10/17 03/10/17 08:25 09:31 09:32 Temperature Pulse Rate 69 69 Pulse Rate [ 65 Anterior Right Upper Lobe] Respiratory Rate Respiratory 18 Rate [Anterior Right Upper Lobe] Blood Pressure Blood Pressure [Right] O2 Sat by Pulse Oximetry 03/10/17 03/10/17 03/10/17 09:33 09:34 10:00 Temperature Pulse Rate 69 69 Pulse Rate [ Anterior Right Upper Lobe] Respiratory Rate Respiratory Rate [Anterior Right Upper Lobe] Blood Pressure Blood Pressure [Right] O2 Sat by Pulse 99 Oximetry 03/10/17 03/10/17 03/10/17 11:10 14:05 14:19 Temperature 97.7 F Pulse Rate 64 Pulse Rate [ 64 65 Anterior Right Upper Lobe] Respiratory 18 Rate Respiratory 18 18 Rate [Anterior Right Upper Lobe] Blood Pressure 113/53 Blood Pressure [Right] O2 Sat by Pulse 100 Oximetry - Labs CBC & Chem 7: 03/11/17 07:22 03/11/17 07:22 Labs: Abnormal lab results 03/09/17 03/09/17 03/10/17 Range/Units 17:06 21:30 08:19 Sodium (137-145) mmol/L Chloride (98-107) mmol/L BUN (7-17) mg/dL Creatinine (0.7-1.2) mg/dL Glucose (65-100) mg/dL POC Glucose 153 H 238 H 132 H (70-105) Calcium (8.4-10.2) mg/dL 03/10/17 03/10/17 Range/Units 08:35 11:14 Sodium 146 H (137-145) mmol/L Chloride 107.6 H (98-107) mmol/L BUN 32 H (7-17) mg/dL Creatinine 3.1 H D (0.7-1.2) mg/dL Glucose 131 H (65-100) mg/dL POC Glucose 185 H (70-105) Calcium 8.2 L (8.4-10.2) mg/dL
[2017-03-11] MEDS: NOVOLOG SUB-Q SCH ×8 (01:04→21:35)
[2017-03-11] MEDS: LASIX IV SCH (06:24)
[2017-03-11 07:48] LABS: Hemoglobin 10.7 gm/dl (10.1-14.3); Mean Corpuscular HGB Conc 31 % (30-34); Mean Corpuscular Hemoglobin 26 pg (28-32); Mean Corpuscular Volume 85 fl (79-97); Platelet Count 216 K/mm3 (140-440); Red Cell Distribution Width 17.8 % (13.2-15.2); White Blood Count 5.3 K/mm3 (4.5-11.0)
[2017-03-11 08:04] LABS: Calcium 8.4 mg/dL (8.4-10.2); Chloride 106.9 mmol/L (98-107); Potassium 4.4 mmol/L (3.6-5.0)
[2017-03-11] MEDS: PROVENTIL IH SCH ×3 (09:33→21:31)
[2017-03-11] MEDS: COREG PO SCH ×2 (10:13→21:37)
[2017-03-11] MEDS: LOVENOX SUB-Q SCH (10:13)
[2017-03-11] MEDS: RANEXA ER PO SCH ×2 (10:13→21:37)
[2017-03-11] MEDS: PROzac PO SCH (10:14)
[2017-03-11] MEDS: HALFPRIN EC PO SCH (10:14)
[2017-03-11] MEDS: APRESOLINE PO SCH ×2 (10:14→21:37)
[2017-03-11] MEDS: NORVASC PO SCH (10:15)
[2017-03-11] MEDS: IMDUR PO SCH (10:15)
--- NOTE | 2017-03-11 11:31 | Progress Note ---
Assessment and Plan Acute systolic congestive heart failure Hx of Ischemic cardiomyopathy EF 30-35% 05/2016 Hx of CAD patent RCA stents on [facility] 05/2016 Moderate to severe Pulmonary hypertension Chronic renal failure diuretics held Hypertension Diabetes mellitus LBBB, chronic Continue medical therapy for coronary disease and systolic heart failure. Otherwise, conservative cardiac management. Subjective Date of service: 03/11/17 Principal diagnosis: congestive heart failure Interval history: Patient reports she is feeling better. Serum creatinine is worsening, was 1.9 on admission, today creatinine of 3.5. Objective Vital Signs Temp Pulse Pulse Pulse Pulse Resp Resp 03/11/17 10:15 64 03/11/17 10:14 64 03/11/17 10:13 64 03/11/17 10:00 64 20 03/11/17 09:34 03/11/17 08:01 63 03/11/17 08:00 70 69 18 03/11/17 07:39 97.7 F 64 20 03/11/17 04:21 98.0 F 64 18 03/10/17 23:36 98.2 F 59 L 18 03/10/17 22:00 63 03/10/17 21:54 03/10/17 20:15 88 03/10/17 19:52 97.9 F 62 18 03/10/17 16:50 98.5 F 56 L 16 03/10/17 16:07 98.5 F 63 16 03/10/17 14:19 65 03/10/17 14:05 64 Resp BP BP Pulse Ox 03/11/17 10:15 126/52 03/11/17 10:14 126/52 03/11/17 10:13 126/52 03/11/17 10:00 97 03/11/17 09:34 99 03/11/17 08:01 03/11/17 08:00 18 03/11/17 07:39 126/52 97 03/11/17 04:21 104/47 94 03/10/17 23:36 90/42 96 03/10/17 22:00 03/10/17 21:54 98 03/10/17 20:15 16 03/10/17 19:52 117/58 100 03/10/17 16:50 113/54 97 03/10/17 16:07 113/54 97 03/10/17 14:19 18 03/10/17 14:05 18 - Physical Examination General: No Apparent Distress Neck: Positive: trachea midline - Labs and Meds CBC 03/11/17 Range/Units 07:22 WBC 5.3 (4.5-11.0) K/mm3 RBC 4.10 (3.65-5.03) M/mm3 Hgb 10.7 (10.1-14.3) gm/dl Hct 35.0 (30.3-42.9) % Plt Count 216 (140-440) K/mm3 Comprehensive Metabolic Panel 03/11/17 Range/Units 07:22 Sodium 145 (137-145) mmol/L Potassium 4.4 (3.6-5.0) mmol/L Chloride 106.9 (98-107) mmol/L Carbon Dioxide 27 (22-30) mmol/L BUN 38 H (7-17) mg/dL Creatinine 3.5 H (0.7-1.2) mg/dL Glucose 133 H (65-100) mg/dL Calcium 8.4 (8.4-10.2) mg/dL
--- NOTE | 2017-03-11 16:25 | Progress Note ---
Assessment and Plan /Acute hypoxic respiratory failure Was likely due to CHF exacerbation, continue oxygen supplementation and treat underlying cause /Acute exacerbation of chronic systolic CHF, EF 30%, ICM Ischemic cardiomyopathy cardiology input appreciated, continue optimize meds, s/p iv diuretics now on hold for JASEN As per cardiology, patient be evaluated as an outpatient for AICD /Pulmonary hypertension continue current meds and monitor clinically /CAD (coronary artery disease) She denies chest pain, continue home medications medications /Hypoglycemia/Diabetes Patient admits to hypoglycemia at home, hold lantus, only giving pre-meal insulin and SSI /Jasen on CKD -hold diuretics and ACEI, avoid nephrotoxic medications -Creatinine today 3.5, cr was 1.9 on presentation - will cont to monitor, consult nephrology /Dvt ppx -lovenox renally dosed Brief History: 71 YO Female with HTN, DM, Metabolic Syndrome, Obesity, Systolic CHF(EF 30%),Pulmonary HTN, CAD S/P Stent placement presents to ED for shortness of breath and leg swelling over the past two weeks. Pt acknowledged dietary noncompliance, and not taking her weight daily and monitoring fluid intake. Pt seen and evaluated in ED and found to be in respiratory distress and placed on supplemental oxygen. Hospitalist Physical - Physical exam Narrative exam: General.: Appears well, no distress, nontoxic HEENT: Moist mucous membranes, extraocular muscles intact, no lymphadenopathy Neck: supple Cardiac: S1-S2 heard Lungs: Bibasilar crackles Abdomen: soft , nontender, nondistended, bowel sounds positive Extremities: no edema clubbing or cyanosis Skin: One plus bipedal edema Neurologic: no gross focal deficits Psych: corporative, poor memory, evidence of senile dementia Subjective Date of service: 03/11/17 Principal diagnosis: congestive heart failure Interval history: pt seen and examined improved sob, orthopnea appears very lethargic and c/o generalized weakness Objective - Constitutional Vitals: Vital Signs - 12hr 03/11/17 03/11/17 03/11/17 07:39 08:00 08:01 Temperature 97.7 F Pulse Rate 64 63 Pulse Rate [ 70 Anterior Bilateral Throughout] Pulse Rate [ 69 Anterior Right Upper Lobe] Pulse Rate [ From Monitor] Respiratory 20 Rate Respiratory 18 Rate [Anterior Bilateral Throughout] Respiratory 18 Rate [Anterior Right Upper Lobe] Blood Pressure 126/52 Blood Pressure [Right] O2 Sat by Pulse 97 Oximetry 03/11/17 03/11/17 03/11/17 09:34 10:00 10:13 Temperature Pulse Rate 64 Pulse Rate [ Anterior Bilateral Throughout] Pulse Rate [ Anterior Right Upper Lobe] Pulse Rate [ 64 From Monitor] Respiratory 20 Rate Respiratory Rate [Anterior Bilateral Throughout] Respiratory Rate [Anterior Right Upper Lobe] Blood Pressure 126/52 Blood Pressure [Right] O2 Sat by Pulse 99 97 Oximetry 03/11/17 03/11/17 03/11/17 10:14 10:15 13:16 Temperature Pulse Rate 64 64 52 L Pulse Rate [ Anterior Bilateral Throughout] Pulse Rate [ Anterior Right Upper Lobe] Pulse Rate [ From Monitor] Respiratory Rate Respiratory Rate [Anterior Bilateral Throughout] Respiratory Rate [Anterior Right Upper Lobe] Blood Pressure 126/52 126/52 Blood Pressure 149/66 [Right] O2 Sat by Pulse Oximetry 03/11/17 13:50 Temperature Pulse Rate Pulse Rate [ 70 Anterior Bilateral Throughout] Pulse Rate [ 68 Anterior Right Upper Lobe] Pulse Rate [ From Monitor] Respiratory Rate Respiratory 18 Rate [Anterior Bilateral Throughout] Respiratory 16 Rate [Anterior Right Upper Lobe] Blood Pressure Blood Pressure [Right] O2 Sat by Pulse Oximetry - Labs CBC & Chem 7: 03/11/17 07:22 03/11/17 07:22 Labs: Abnormal lab results 03/10/17 03/10/17 03/11/17 Range/Units 16:10 19:58 07:22 MCH 26 L (28-32) pg RDW 17.8 H (13.2-15.2) % BUN (7-17) mg/dL Creatinine (0.7-1.2) mg/dL Glucose (65-100) mg/dL POC Glucose 136 H 141 H (70-105) 03/11/17 03/11/17 Range/Units 07:22 11:03 MCH (28-32) pg RDW (13.2-15.2) % BUN 38 H (7-17) mg/dL Creatinine 3.5 H (0.7-1.2) mg/dL Glucose 133 H (65-100) mg/dL POC Glucose 229 H (70-105)
[2017-03-12 06:06] LABS: Calcium 8.5 mg/dL (8.4-10.2); Potassium 4.6 mmol/L (3.6-5.0)
[2017-03-12] MEDS: IMDUR PO SCH (09:10)
[2017-03-12] MEDS: HALFPRIN EC PO SCH (09:10)
[2017-03-12] MEDS: LOVENOX SUB-Q SCH (09:12)
[2017-03-12] MEDS: APRESOLINE PO SCH ×2 (09:12→22:14)
[2017-03-12] MEDS: COREG PO SCH ×2 (09:12→22:14)
[2017-03-12] MEDS: NORVASC PO SCH (09:12)
[2017-03-12] MEDS: PROzac PO SCH (09:13)
[2017-03-12] MEDS: RANEXA ER PO SCH ×2 (09:17→22:14)
[2017-03-12] MEDS: NOVOLOG SUB-Q SCH ×7 (10:01→22:17)
--- NOTE | 2017-03-12 10:46 | Progress Note ---
Assessment and Plan Acute systolic congestive heart failure - resolved Hx of Ischemic cardiomyopathy EF 30-35% 05/2016 Hx of CAD patent RCA stents on [facility] 05/2016 Moderate to severe Pulmonary hypertension Chronic renal failure diuretics on hold Hypertension Diabetes mellitus LBBB, chronic Recommendations: Continue medical therapy for coronary disease and systolic heart failure. Consider [facility] HD for fluid management given recurrent HF hospitalizations Subjective Date of service: 03/12/17 Principal diagnosis: congestive heart failure Interval history: Patient denies chest pain or shortness of breath at bedside concerned about memory loss in the hospital, something that she always experiences when she is hospitalized Objective Vital Signs Temp Pulse Pulse Pulse Resp Resp Resp 03/12/17 09:25 18 03/12/17 09:12 03/12/17 09:10 03/12/17 03:53 98.2 F 64 18 03/11/17 23:42 97.9 F 63 18 03/11/17 21:38 70 70 20 03/11/17 21:37 65 20 03/11/17 21:29 65 20 03/11/17 19:58 98.7 F 65 18 03/11/17 19:50 66 03/11/17 16:20 98.5 F 62 18 03/11/17 15:43 03/11/17 14:14 98.3 F 63 22 03/11/17 13:50 70 68 18 16 03/11/17 13:16 52 L BP BP Pulse Ox 03/12/17 09:25 03/12/17 09:12 162/71 03/12/17 09:10 162/71 03/12/17 03:53 130/54 90 03/11/17 23:42 107/46 86 03/11/17 21:38 03/11/17 21:37 138/58 03/11/17 21:29 03/11/17 19:58 138/58 90 03/11/17 19:50 03/11/17 16:20 128/62 99 03/11/17 15:43 99 03/11/17 14:14 125/58 98 03/11/17 13:50 03/11/17 13:16 149/66 - Physical Examination General: No Apparent Distress Neck: Positive: trachea midline Cardiac: Positive: Reg Rate and Rhythm Lungs: Positive: Normal Exam Abdomen: Positive: Soft Extremities: Present: normal - Labs and Meds Comprehensive Metabolic Panel 03/12/17 Range/Units 05:22 Sodium 148 H (137-145) mmol/L Potassium 4.6 (3.6-5.0) mmol/L Chloride 109.0 H (98-107) mmol/L Carbon Dioxide 27 (22-30) mmol/L BUN 42 H (7-17) mg/dL Creatinine 3.9 H (0.7-1.2) mg/dL Glucose 178 H (65-100) mg/dL Calcium 8.5 (8.4-10.2) mg/dL
[2017-03-12] MEDS: PROVENTIL IH SCH ×3 (11:31→21:17)
--- NOTE | 2017-03-12 14:26 | Consultation ---
History of Present Illness - Reason for Consult Consult date: 03/12/17 acute renal failure, chronic renal failure - History of Present Illness The patient is a 71 YO AAF with medical history significant for Ischemic cardiomyopathy with EF 30%, CAD status post multiple PCI, Severe Pulmonary HTN, HTN, Type 2 DM, and CKD stage 4 and Obesity admitted to the hospital with progressive shortness of breath. Pt reports having shortness of breath and leg swelling over the past two weeks with 1 day h/o acute worsening of symptoms. Pt acknowledges orthopnea, PND as well and chest pressure and decreased exercise tolerance. She is well known to our service and followed by our service for CKD. She was recently admitted at [facility] with similar symptoms and was discharged about 2 weeks ago. On admission her renal function was at her baseline. Her creatinine level has progressively increased 3.9 today. Intermittent hypotension noted. Patient was on ARB until 03/10. Last dose of IV lasix yesterday. Past History Past Medical History: CAD, diabetes, heart failure, hypertension, other ( PUlmonary Hypertension) Past Surgical History: Other (Stent placement) Social history: , lives with family. denies: smoking, alcohol abuse, prescription drug abuse Medications and Allergies Allergies Allergy/AdvReac Type Severity Reaction Status Date / Time Sulfa (Sulfonamide Allergy PASS OUT, Verified 06/05/16 15:32 Antibiotics) ITCHING Home Medications Medication Instructions Recorded Confirmed Last Taken Type Aspirin EC [Aspirin Enteric Coated 81 mg PO DAILY 05/03/14 03/07/17 05/02/14 History TAB] Atorvastatin [Lipitor] 40 mg PO DAILY 05/03/14 03/07/17 05/02/14 History 40mg Carvedilol 25 mg PO BID 05/03/14 03/07/17 05/03/14 History 0600 Hydralazine HCl [Apresoline TAB] 25 mg PO BID 05/03/14 03/07/17 05/03/14 History 25mg Insulin Aspart [NovoLOG Flexpen] 5 units SQ QAC 05/03/14 03/07/17 05/02/14 History 105units Insulin Glargine,Hum.rec.anlog 15 units SQ HS 05/03/14 03/07/17 05/02/14 History [Lantus Solostar] 25units Torsemide 40 mg PO DAILY 05/03/14 03/07/17 05/02/14 History 40mg ALBUTEROL NEB's [Proventil 0.083% 3 ml INHALATION TID PRN 03/07/17 03/07/17 Unknown History NEBS] Arformoterol Nebu [Brovana Nebu] 2 ml INHALATION BID 03/07/17 03/07/17 Unknown History Fluticasone/Vilanterol [Breo 1 inhalation PO QDAY 03/07/17 03/07/17 Unknown History Ellipta 100-25 Mcg INH] Losartan [Cozaar] 50 mg PO QDAY 03/07/17 03/07/17 Unknown History Nortriptyline [Pamelor] 10 mg PO QHS 03/07/17 03/07/17 Unknown History Omeprazole [Omeprazole] 40 mg PO QDAC 03/07/17 03/07/17 Unknown History Ranolazine [Ranexa] 1,000 mg PO BID 03/07/17 03/07/17 Unknown History clonazePAM [Klonopin] 1 mg PO QDAY PRN 03/07/17 03/07/17 Unknown History Active Meds: Active Medications Acetaminophen (Tylenol) 650 mg PO Q4H PRN PRN Reason: Pain MILD(1-3)/Fever >100.5/BERRY Albuterol (Proventil) 2.5 mg IH TIDRT [facility] Last Admin: 03/12/17 11:31 Dose: 2.5 mg Amlodipine Besylate (Norvasc) 10 mg PO DAILY [facility] Last Admin: 03/12/17 09:12 Dose: 10 mg Aspirin (Halfprin Ec) 81 mg PO DAILY [facility] Last Admin: 03/12/17 09:10 Dose: 81 mg Atorvastatin Calcium (Lipitor) 40 mg PO DAILY [facility] Last Admin: 03/12/17 09:12 Dose: 40 mg Bisacodyl (Dulcolax) 10 mg GA QDAY PRN PRN Reason: Constipation unrelieved by MOM Carvedilol (Coreg) 25 mg PO BID [facility] Last Admin: 03/12/17 09:12 Dose: 25 mg Dextrose (D50w (25gm) Syringe) 50 ml IV PRN PRN PRN Reason: Hypoglycemia Enoxaparin Sodium (Lovenox) 30 mg SUB-Q QDAY [facility] Last Admin: 03/12/17 09:12 Dose: 30 mg Fluoxetine HCl (Prozac) 10 mg PO QDAY [facility] Last Admin: 03/12/17 09:13 Dose: Not Given Hydralazine HCl (Apresoline) 25 mg PO BID [facility] Last Admin: 03/12/17 09:12 Dose: 25 mg Insulin Aspart (Novolog) 0 units SUB-Q ACHS [facility] PRN Reason: Protocol Last Admin: 03/12/17 10:02 Dose: 1 units Insulin Aspart (Novolog) 2 units SUB-Q AC [facility] Last Admin: 03/12/17 10:01 Dose: 2 units Isosorbide Mononitrate (Imdur) 30 mg PO DAILY [facility] Last Admin: 03/12/17 09:10 Dose: 30 mg Magnesium Hydroxide (Milk Of Magnesia) 30 ml PO Q4H PRN PRN Reason: Constipation Last Admin: 03/10/17 13:49 Dose: 30 ml Ondansetron HCl (Zofran) 4 mg IV Q8H PRN PRN Reason: N/V unrelieved by Karyna Ranolazine (Ranexa Er) 500 mg PO BID [facility] Last Admin: 03/12/17 09:17 Dose: 500 mg Review of Systems ROS unobtainable: due to mental status Exam - Vital Signs Vital signs: Vital Signs Pulse Ox 98 03/07/17 13:13 - General Appearance General appearance: well-developed, well-nourished, appears stated age, other ( no distress) EENT: ATNC, PERRL, mucous membranes moist, hearing intact, vision intact Neck: Present: neck supple, trachea midline Respiratory: Rales Heart: regular, S1S2, no murmurs Gastrointestinal: Present: normoactive bowel sounds, obese. Absent: tenderness , distended Integumentary: no rash, warm and dry Neurologic: no focal deficit, no asterixis, disoriented, CN 3-12 intact Musculoskeletal: Present: other (trace pedal edema noted) Psychiatric: mood/affect appropriate, cooperative Results - Lab Results 03/11/17 07:22 03/12/17 05:22 Most recent lab results Calcium 8.5 mg/dL (8.4-10.2) 03/12/17 05:22 Phosphorus 3.60 mg/dL (2.5-4.5) 03/07/17 13:23 Magnesium 2.30 mg/dL (1.7-2.3) 03/07/17 13:23 - Image Kidney/bladder ultrasound: pending Assessment and Plan - Patient Problems (1) KIM (acute kidney injury) Current Visit: No Status: Acute Plan to address problem: Acute kidney injury superimposed on CKD stage 4 in the setting of CHF exacerbation. Hemodynamically stable. Avoid ACEI, ARB and NSAIDs. Renal US and Urine studies ordered. Renal prognosis is guarded. (2) CHF (congestive heart failure) Current Visit: Yes Status: Acute Qualifiers: Congestive heart failure type: combined Congestive heart failure chronicity : acute on chronic Qualified Code(s): I50.43 - Acute on chronic combined systolic (congestive) and diastolic (congestive) heart failure Plan to address problem: Followed by Cards. (3) Accelerated hypertension Current Visit: Yes Status: Acute Plan to address problem: BP is better now. (4) Anemia associated with chronic renal failure Current Visit: Yes Status: Chronic
--- NOTE | 2017-03-12 17:01 | Progress Note ---
Assessment and Plan Assessment and plan: Acute hypoxic respiratory failure due to CHF exacerbation, continue oxygen supplementation and treat underlying cause Acute exacerbation of chronic systolic CHF, EF 30%, ICM Ischemic cardiomyopathy cardiology input appreciated, continue optimize meds, s/p iv diuretics now on hold for KIM As per cardiology, patient be evaluated as an outpatient for AICD Pulmonary hypertension continue current meds and monitor clinically CAD (coronary artery disease) She denies chest pain, continue home medications medications Hypoglycemia/Diabetes Patient admits to hypoglycemia at home, hold lantus, only giving pre-meal insulin and SSI KIM on CKD -held diuretics and ACEI, avoid nephrotoxic medications -Creatinine today 3.9, cr was 1.9 on presentation - will cont to monitor, consulted nephrology Dvt ppx -lovenox renally dosed Hospitalist Physical - Physical exam Narrative exam: Gen Appearance: Not in acute distress, HEENT: normocephalic, atraumatic Neck: supple, no JVD Lungs: Clear to auscultation, no rales, no wheezing, Heart: S1 and S2 regular, no murmurs,no rubs or gallop, Abdomen: Soft , non tender, non distended, normal bowel sounds Extremity: No edema, no clubbing or cyanosis, Neuro : Awake,alert, oriented x 3, normal speech, moves all extremities Psych:Normal mood - Constitutional Vitals: Temp Pulse Resp BP Pulse Ox 98.2 F 66 18 162/71 90 03/12/17 03:53 03/12/17 10:00 03/12/17 09:25 03/12/17 09:12 03/12/17 03:53 General appearance: Present: mild distress Results - Labs CBC & Chem 7: 03/15/17 05:06 03/15/17 05:06 Labs: Laboratory Last Values WBC 5.3 K/mm3 (4.5-11.0) 03/11/17 07:22 RBC 4.10 M/mm3 (3.65-5.03) 03/11/17 07:22 Hgb 10.7 gm/dl (10.1-14.3) 03/11/17 07:22 Hct 35.0 % (30.3-42.9) 03/11/17 07:22 MCV 85 fl (79-97) 03/11/17 07:22 MCH 26 pg (28-32) L 03/11/17 07:22 MCHC 31 % (30-34) 03/11/17 07:22 RDW 17.8 % (13.2-15.2) H 03/11/17 07:22 Plt Count 216 K/mm3 (140-440) 03/11/17 07:22 Lymph % (Auto) 18.5 % (13.4-35.0) 03/07/17 13:18 [place] % (Auto) 3.1 % (0.0-7.3) 03/07/17 13:18 Eos % (Auto) 0.2 % (0.0-4.3) 03/07/17 13:18 Baso % (Auto) 0.7 % (0.0-1.8) 03/07/17 13:18 Lymph # 1.7 K/mm3 (1.2-5.4) 03/07/17 13:18 [place] # 0.3 K/mm3 (0.0-0.8) 03/07/17 13:18 Eos # 0.0 K/mm3 (0.0-0.4) 03/07/17 13:18 Baso # 0.1 K/mm3 (0.0-0.1) 03/07/17 13:18 Seg Neutrophils % 77.5 % (40.0-70.0) H 03/07/17 13:18 Seg Neutrophils # 6.9 K/mm3 (1.8-7.7) 03/07/17 13:18 PT 14.0 Sec. (12.2-14.9) 03/07/17 13:23 INR 1.03 (0.87-1.13) 03/07/17 13:23 APTT 32.0 Sec. (24.2-36.6) 03/07/17 13:23 Sodium 148 mmol/L (137-145) H 03/12/17 05:22 Potassium 4.6 mmol/L (3.6-5.0) 03/12/17 05:22 Chloride 109.0 mmol/L (98-107) H 03/12/17 05:22 Carbon Dioxide 27 mmol/L (22-30) 03/12/17 05:22 Anion Gap 17 mmol/L 03/12/17 05:22 BUN 42 mg/dL (7-17) H 03/12/17 05:22 Creatinine 3.9 mg/dL (0.7-1.2) H 03/12/17 05:22 Estimated GFR 14 ml/min 03/12/17 05:22 BUN/Creatinine Ratio 11 % 03/12/17 05:22 Glucose 178 mg/dL (65-100) H 03/12/17 05:22 POC Glucose 172 (70-105) H 03/12/17 07:49 Hemoglobin A1c 7.3 % (4-6) H 03/09/17 05:53 Calcium 8.5 mg/dL (8.4-10.2) 03/12/17 05:22 Phosphorus 3.60 mg/dL (2.5-4.5) 03/07/17 13:23 Magnesium 2.30 mg/dL (1.7-2.3) 03/07/17 13:23 Total Bilirubin 0.60 mg/dL (0.1-1.2) 03/07/17 13:23 Direct Bilirubin < 0.2 mg/dL (0-0.2) 03/07/17 13:23 AST 36 units/L (5-40) 03/07/17 13:23 ALT 43 units/L (7-56) 03/07/17 13:23 Alkaline Phosphatase 189 units/L (35-129) H 03/07/17 13:23 Troponin T 0.019 ng/mL (0.00-0.029) 03/07/17 13:18 NT-Pro-B Natriuret Pep 06740 pg/mL (0-900) H 03/07/17 13:18 Total Protein 7.2 g/dL (6.3-8.2) 03/07/17 13:23 Albumin 3.4 g/dL (3.9-5) L 03/07/17 13:23 Albumin/Globulin Ratio 0.9 % 03/07/17 13:23
[2017-03-13 04:45] LABS: Calcium 8.1 mg/dL (8.4-10.2); Potassium 4.5 mmol/L (3.6-5.0)
[2017-03-13] MEDS: PROVENTIL IH SCH ×3 (08:21→20:59)
--- NOTE | 2017-03-13 09:09 | Ultrasound Report ---
ULTRASOUND RENAL BILATERAL HISTORY: Acute renal failure. TECHNIQUE: transabdominal ultrasound with color Doppler interrogation. FINDINGS: The right kidney is atrophic and echogenic measuring 6.3 cm in length. No focal right renal lesion or hydronephrosis. The left kidney is normal size measuring 9.1 cm. The echogenicity of the left kidney is also slightly increased consistent with nonspecific renal parenchymal disease. Images through the bladder are unremarkable. IMPRESSION: Atrophic and echogenic right kidney. Normal size but slightly echogenic left kidney. No change since 06/04/16.
--- NOTE | 2017-03-13 09:11 | Progress Note ---
Assessment and Plan - Patient Problems (1) KIM (acute kidney injury) Current Visit: No Status: Acute Plan to address problem: Acute kidney injury superimposed on CKD stage 4 in the setting of CHF exacerbation. Hemodynamically stable. Creatinine leveled off. Atrophic right kidney. Renal prognosis is guarded. (2) CHF (congestive heart failure) Current Visit: Yes Status: Acute Qualifiers: Congestive heart failure type: combined Congestive heart failure chronicity : acute on chronic Qualified Code(s): I50.43 - Acute on chronic combined systolic (congestive) and diastolic (congestive) heart failure Plan to address problem: Followed by Cards. (3) Accelerated hypertension Current Visit: Yes Status: Acute Plan to address problem: BP is better now. (4) Anemia associated with chronic renal failure Current Visit: Yes Status: Chronic Subjective Date of service: 03/13/17 Principal diagnosis: congestive heart failure Interval history: Patient is doing ok. Objective - Vital Signs Vital signs: Vital Signs - 12hr 03/12/17 03/12/17 03/12/17 21:18 21:19 21:32 Temperature Pulse Rate Pulse Rate [ 64 65 Anterior Bilateral Throughout] Pulse Rate [ From Monitor] Respiratory Rate Respiratory 20 20 Rate [Anterior Bilateral Throughout] Blood Pressure O2 Sat by Pulse 97 Oximetry 03/12/17 03/12/17 03/12/17 22:00 22:14 23:37 Temperature 97.6 F Pulse Rate 63 65 60 Pulse Rate [ Anterior Bilateral Throughout] Pulse Rate [ 65 From Monitor] Respiratory 20 22 Rate Respiratory Rate [Anterior Bilateral Throughout] Blood Pressure 135/56 115/43 O2 Sat by Pulse 98 Oximetry 03/13/17 03/13/17 04:35 08:33 Temperature 97.8 F 97.8 F Pulse Rate 62 62 Pulse Rate [ Anterior Bilateral Throughout] Pulse Rate [ From Monitor] Respiratory 21 18 Rate Respiratory Rate [Anterior Bilateral Throughout] Blood Pressure 136/56 137/59 O2 Sat by Pulse 97 96 Oximetry - General Appearance General appearance: well-developed, well-nourished, appears stated age, other ( no distress) EENT: ATNC, PERRL, mucous membranes moist, hearing intact, vision intact Neck: supple Respiratory: Present: Clear to Ascultation Cardiology: regular, S1S2, no murmurs Gastrointestinal: normoactive bowel sounds, no tenderness, no distended Integumentary: no rash Neurologic: no focal deficit, no asterixis, confused, CN 3-12 intact Musculoskeletal: other (trace pedal edema of both LEs noted) Psychiatric: mood/affect appropriate, cooperative - Lab 03/11/17 07:22 03/13/17 04:01 Most recent lab results Calcium 8.1 mg/dL (8.4-10.2) L 03/13/17 04:01 Phosphorus 3.60 mg/dL (2.5-4.5) 03/07/17 13:23 Magnesium 2.30 mg/dL (1.7-2.3) 03/07/17 13:23
[2017-03-13] MEDS: NOVOLOG SUB-Q SCH ×7 (09:22→22:32)
[2017-03-13] MEDS: NORVASC PO SCH (09:24)
[2017-03-13] MEDS: IMDUR PO SCH (09:25)
[2017-03-13] MEDS: APRESOLINE PO SCH ×2 (09:25→22:31)
[2017-03-13] MEDS: HALFPRIN EC PO SCH (09:25)
[2017-03-13] MEDS: COREG PO SCH ×2 (09:25→22:30)
[2017-03-13] MEDS: RANEXA ER PO SCH ×2 (09:25→22:30)
[2017-03-13] MEDS: LOVENOX SUB-Q SCH (09:26)
[2017-03-13] MEDS: PROzac PO SCH (09:27)
--- NOTE | 2017-03-13 10:25 | Progress Note ---
Assessment and Plan Acute systolic congestive heart failure Hx of Ischemic cardiomyopathy EF 30-35% 05/2016 Hx of CAD patent RCA stents on [facility] 05/2016 Moderate to severe Pulmonary hypertension Chronic renal failure diuretics held Hypertension Diabetes mellitus LBBB, chronic Continue medical therapy for coronary disease and systolic heart failure. Otherwise, conservative cardiac management. Subjective Date of service: 03/13/17 Principal diagnosis: congestive heart failure Interval history: Patient denies shortness of breath. No distress noted. Objective Vital Signs Temp Pulse Pulse Pulse Pulse Resp Resp 03/13/17 09:25 64 03/13/17 09:24 64 03/13/17 08:33 97.8 F 62 18 03/13/17 04:35 97.8 F 62 21 03/12/17 23:37 97.6 F 60 22 03/12/17 22:14 65 03/12/17 22:00 63 65 20 03/12/17 21:32 65 20 03/12/17 21:19 03/12/17 21:18 64 20 03/12/17 20:55 98.3 F 62 22 03/12/17 16:33 98.7 F 62 22 03/12/17 16:30 78 88 20 03/12/17 16:15 82 03/12/17 12:05 74 78 22 03/12/17 11:40 72 Resp BP Pulse Ox 03/13/17 09:25 137/59 03/13/17 09:24 137/59 03/13/17 08:33 137/59 96 03/13/17 04:35 136/56 97 03/12/17 23:37 115/43 98 03/12/17 22:14 135/56 03/12/17 22:00 03/12/17 21:32 03/12/17 21:19 97 03/12/17 21:18 03/12/17 20:55 135/56 98 03/12/17 16:33 127/56 99 03/12/17 16:30 20 03/12/17 16:15 18 03/12/17 12:05 18 03/12/17 11:40 20 - Physical Examination General: No Apparent Distress HEENT: Positive: PERRL Cardiac: Positive: Reg Rate and Rhythm Lungs: Positive: Decreased Breath Sounds Neuro: Positive: Grossly Intact Extremities: Present: normal - Labs and Meds Comprehensive Metabolic Panel 03/13/17 Range/Units 04:01 Sodium 146 H (137-145) mmol/L Potassium 4.5 (3.6-5.0) mmol/L Chloride 108.0 H (98-107) mmol/L Carbon Dioxide 27 (22-30) mmol/L BUN 45 H (7-17) mg/dL Creatinine 3.8 H (0.7-1.2) mg/dL Glucose 202 H (65-100) mg/dL Calcium 8.1 L (8.4-10.2) mg/dL
--- NOTE | 2017-03-13 12:29 | Progress Note ---
Assessment and Plan Assessment and plan: Acute hypoxic respiratory failure due to CHF exacerbation, continue oxygen supplementation She feels better, less shortness of breath Acute exacerbation of chronic systolic CHF, EF 30%, ICM Ischemic cardiomyopathy cardiology input appreciated, continue optimize meds, s/p iv diuretics now on hold for KIM As per cardiology, patient be evaluated as an outpatient for AICD Pulmonary hypertension continue current meds and monitor clinically CAD (coronary artery disease) She denies chest pain, continue home medications medications Hypoglycemia/Diabetes Patient admits to hypoglycemia at home, hold lantus, only giving pre-meal insulin and SSI KIM on CKD -held diuretics and ACEI, avoid nephrotoxic medications -Creatinine today 3.8, cr was 1.9 on presentation - will cont to monitor, Patient now followed by Dr. Elliott and I discussed case with him. DVT prphylaxis with Lovenox History Interval history: Less shortness of breath, No chest pain Hospitalist Physical - Physical exam Narrative exam: Gen Appearance: Not in acute distress,obese HEENT: normocephalic, atraumatic Neck: supple, no JVD Lungs: Clear to auscultation, no rales, no wheezing, Heart: S1 and S2 regular, no murmurs,no rubs or gallop, Abdomen: Soft , non tender, non distended, normal bowel sounds Extremity: No edema, no clubbing or cyanosis, Neuro : Awake,alert, oriented x 3, normal speech, moves all extremities Psych:Normal mood - Constitutional Vitals: Temp Pulse Resp BP Pulse Ox 97.8 F 64 18 137/59 96 03/13/17 08:33 03/13/17 09:25 03/13/17 08:33 03/13/17 09:25 03/13/17 08:33 General appearance: Present: mild distress Results - Labs CBC & Chem 7: 03/15/17 05:06 03/15/17 05:06 Labs: Laboratory Last Values WBC 5.3 K/mm3 (4.5-11.0) 03/11/17 07:22 RBC 4.10 M/mm3 (3.65-5.03) 03/11/17 07:22 Hgb 10.7 gm/dl (10.1-14.3) 03/11/17 07:22 Hct 35.0 % (30.3-42.9) 03/11/17 07:22 MCV 85 fl (79-97) 03/11/17 07:22 MCH 26 pg (28-32) L 03/11/17 07:22 MCHC 31 % (30-34) 03/11/17 07:22 RDW 17.8 % (13.2-15.2) H 03/11/17 07:22 Plt Count 216 K/mm3 (140-440) 03/11/17 07:22 Lymph % (Auto) 18.5 % (13.4-35.0) 03/07/17 13:18 [place] % (Auto) 3.1 % (0.0-7.3) 03/07/17 13:18 Eos % (Auto) 0.2 % (0.0-4.3) 03/07/17 13:18 Baso % (Auto) 0.7 % (0.0-1.8) 03/07/17 13:18 Lymph # 1.7 K/mm3 (1.2-5.4) 03/07/17 13:18 [place] # 0.3 K/mm3 (0.0-0.8) 03/07/17 13:18 Eos # 0.0 K/mm3 (0.0-0.4) 03/07/17 13:18 Baso # 0.1 K/mm3 (0.0-0.1) 03/07/17 13:18 Seg Neutrophils % 77.5 % (40.0-70.0) H 03/07/17 13:18 Seg Neutrophils # 6.9 K/mm3 (1.8-7.7) 03/07/17 13:18 PT 14.0 Sec. (12.2-14.9) 03/07/17 13:23 INR 1.03 (0.87-1.13) 03/07/17 13:23 APTT 32.0 Sec. (24.2-36.6) 03/07/17 13:23 Sodium 146 mmol/L (137-145) H 03/13/17 04:01 Potassium 4.5 mmol/L (3.6-5.0) 03/13/17 04:01 Chloride 108.0 mmol/L (98-107) H 03/13/17 04:01 Carbon Dioxide 27 mmol/L (22-30) 03/13/17 04:01 Anion Gap 16 mmol/L 03/13/17 04:01 BUN 45 mg/dL (7-17) H 03/13/17 04:01 Creatinine 3.8 mg/dL (0.7-1.2) H 03/13/17 04:01 Estimated GFR 14 ml/min 03/13/17 04:01 BUN/Creatinine Ratio 12 % 03/13/17 04:01 Glucose 202 mg/dL (65-100) H 03/13/17 04:01 POC Glucose 192 (70-105) H 03/13/17 12:04 Hemoglobin A1c 7.3 % (4-6) H 03/09/17 05:53 Calcium 8.1 mg/dL (8.4-10.2) L 03/13/17 04:01 Phosphorus 3.60 mg/dL (2.5-4.5) 03/07/17 13:23 Magnesium 2.30 mg/dL (1.7-2.3) 03/07/17 13:23 Total Bilirubin 0.60 mg/dL (0.1-1.2) 03/07/17 13:23 Direct Bilirubin < 0.2 mg/dL (0-0.2) 03/07/17 13:23 AST 36 units/L (5-40) 03/07/17 13:23 ALT 43 units/L (7-56) 03/07/17 13:23 Alkaline Phosphatase 189 units/L (35-129) H 03/07/17 13:23 Total Creatine Kinase 35 units/L (30-135) 03/13/17 04:01 Troponin T 0.019 ng/mL (0.00-0.029) 03/07/17 13:18 NT-Pro-B Natriuret Pep 42513 pg/mL (0-900) H 03/07/17 13:18 Total Protein 7.2 g/dL (6.3-8.2) 03/07/17 13:23 Albumin 3.4 g/dL (3.9-5) L 03/07/17 13:23 Albumin/Globulin Ratio 0.9 % 03/07/17 13:23
[2017-03-13] MEDS ORDERED: LEVEMIR SUB-Q SCH (23:55)
[2017-03-14 07:33] LABS: Calcium 8.2 mg/dL (8.4-10.2); Chloride 101.3 mmol/L (98-107); Potassium 4.5 mmol/L (3.6-5.0)
[2017-03-14] MEDS: PROVENTIL IH SCH ×3 (08:27→20:59)
--- NOTE | 2017-03-14 08:35 | Progress Note ---
Assessment and Plan - Patient Problems (1) KIM (acute kidney injury) Current Visit: No Status: Acute Plan to address problem: Acute kidney injury superimposed on CKD stage 4 in the setting of CHF exacerbation. Hemodynamically stable. Increase in the creatinine level since yesterday noted. No uremic symptoms or signs. Atrophic right kidney. Renal prognosis is guarded. (2) CHF (congestive heart failure) Current Visit: Yes Status: Acute Qualifiers: Congestive heart failure type: combined Congestive heart failure chronicity : acute on chronic Qualified Code(s): I50.43 - Acute on chronic combined systolic (congestive) and diastolic (congestive) heart failure Plan to address problem: Followed by Cards. (3) Accelerated hypertension Current Visit: Yes Status: Acute Plan to address problem: BP is better now. (4) Anemia associated with chronic renal failure Current Visit: Yes Status: Chronic Subjective Date of service: 03/14/17 Principal diagnosis: congestive heart failure Interval history: Patient is doing ok. Objective - Vital Signs Vital signs: Vital Signs - 12hr 03/13/17 03/13/17 03/13/17 21:02 21:12 22:00 Temperature Pulse Rate 59 L Pulse Rate [ 60 65 Anterior Bilateral Throughout] Respiratory Rate Respiratory 18 16 Rate [Anterior Bilateral Throughout] Blood Pressure O2 Sat by Pulse 99 Oximetry 03/13/17 03/13/17 03/13/17 22:15 22:30 22:31 Temperature Pulse Rate 60 60 Pulse Rate [ Anterior Bilateral Throughout] Respiratory Rate Respiratory Rate [Anterior Bilateral Throughout] Blood Pressure 118/53 118/53 O2 Sat by Pulse 97 Oximetry 03/14/17 03/14/17 01:00 05:57 Temperature 98.4 F 98.3 F Pulse Rate 59 L 64 Pulse Rate [ Anterior Bilateral Throughout] Respiratory 20 20 Rate Respiratory Rate [Anterior Bilateral Throughout] Blood Pressure 100/47 125/57 O2 Sat by Pulse 96 97 Oximetry - General Appearance General appearance: well-developed, well-nourished, appears stated age, other ( no distress) EENT: ATNC, PERRL, hearing intact, vision intact Neck: supple Respiratory: Present: Clear to Ascultation Cardiology: regular, S1S2, no murmurs Gastrointestinal: normoactive bowel sounds Integumentary: no rash Neurologic: no focal deficit, no asterixis, alert and oriented x3, CN 3-12 intact Musculoskeletal: other (trace pedal edema) Psychiatric: mood/affect appropriate, cooperative - Lab 03/11/17 07:22 03/14/17 06:28 Most recent lab results Calcium 8.2 mg/dL (8.4-10.2) L 03/14/17 06:28 Phosphorus 3.60 mg/dL (2.5-4.5) 03/07/17 13:23 Magnesium 2.30 mg/dL (1.7-2.3) 03/07/17 13:23
[2017-03-14] MEDS: NOVOLOG SUB-Q SCH ×7 (09:43→22:59)
[2017-03-14] MEDS: RANEXA ER PO SCH ×2 (09:45→22:53)
[2017-03-14] MEDS: NORVASC PO SCH (09:45)
[2017-03-14] MEDS: HALFPRIN EC PO SCH (09:45)
[2017-03-14] MEDS: IMDUR PO SCH (09:45)
[2017-03-14] MEDS: APRESOLINE PO SCH ×2 (09:45→22:53)
[2017-03-14] MEDS: COREG PO SCH ×2 (09:46→22:53)
[2017-03-14] MEDS: LOVENOX SUB-Q SCH (09:47)
[2017-03-14] MEDS: PROzac PO SCH (10:00)
--- NOTE | 2017-03-14 10:03 | Progress Note ---
Assessment and Plan Acute systolic congestive heart failure - resolved Hx of Ischemic cardiomyopathy EF 30-35% 05/2016 Hx of CAD patent RCA stents on [facility] 05/2016 Moderate to severe Pulmonary hypertension Chronic renal failure diuretics on hold Hypertension Diabetes mellitus LBBB, chronic Recommendations: Continue medical therapy for coronary disease and systolic heart failure. Consider termite technician HD for fluid management given recurrent HF hospitalizations Subjective Date of service: 03/14/17 Principal diagnosis: congestive heart failure Interval history: No cardiac events overnight Objective Vital Signs Temp Pulse Pulse Resp Resp BP Pulse Ox 03/14/17 05:57 98.3 F 64 20 125/57 97 03/14/17 01:00 98.4 F 59 L 20 100/47 96 03/13/17 22:31 60 118/53 03/13/17 22:30 60 118/53 03/13/17 22:15 97 03/13/17 22:00 59 L 99 03/13/17 21:12 65 16 03/13/17 21:02 60 18 03/13/17 20:10 98.2 F 60 20 118/53 97 03/13/17 15:12 97.6 F 56 L 18 122/52 92 03/13/17 14:22 56 L 18 03/13/17 14:12 55 L 16 03/13/17 12:34 98.1 F 55 L 20 117/53 94 - Physical Examination General: No Apparent Distress HEENT: Positive: PERRL Neck: Positive: neck supple, trachea midline Cardiac: Positive: Reg Rate and Rhythm Lungs: Positive: Normal Exam Neuro: Positive: Grossly Intact Abdomen: Positive: Soft Extremities: Present: normal - Labs and Meds Comprehensive Metabolic Panel 03/14/17 Range/Units 06:28 Sodium 138 D (137-145) mmol/L Potassium 4.5 (3.6-5.0) mmol/L Chloride 101.3 (98-107) mmol/L Carbon Dioxide 25 (22-30) mmol/L BUN 44 H (7-17) mg/dL Creatinine 4.1 H (0.7-1.2) mg/dL Glucose 214 H (65-100) mg/dL Calcium 8.2 L (8.4-10.2) mg/dL
--- NOTE | 2017-03-14 15:55 | Progress Note ---
Assessment and Plan Assessment and plan: Acute hypoxic respiratory failure due to CHF exacerbation, continue oxygen supplementation She feels better, less shortness of breath Acute exacerbation of chronic systolic CHF, EF 30%, Ischemic cardiomyopathy cardiology input appreciated, continue optimize meds, s/p iv diuretics now on hold for KIM As per cardiology, patient be evaluated as an outpatient for AICD Pulmonary hypertension continue current meds and monitor clinically CAD (coronary artery disease) She denies chest pain, continue home medications medications Hypoglycemia/Diabetes Patient admits to hypoglycemia at home, hold lantus, only giving pre-meal insulin and SSI KIM on CKD -held diuretics and ACEI, avoid nephrotoxic medications -Renal function worsening. Creatinine today 4.1 - will cont to monitor, Patient now followed by Dr. Elliott and I discussed case with him. DVT prophylaxis with Lovenox Discussed with Patient and at bedside. History Interval history: Less shortness of breath, No chest pain Hospitalist Physical - Physical exam Narrative exam: Gen Appearance: Not in acute distress,obese HEENT: normocephalic, atraumatic Neck: supple, no JVD Lungs: Clear to auscultation, no rales, no wheezing, Heart: S1 and S2 regular, no murmurs,no rubs or gallop, Abdomen: Soft , non tender, non distended, normal bowel sounds Extremity: No edema, no clubbing or cyanosis, Neuro : Awake,alert, oriented x 3, normal speech, moves all extremities Psych:Normal mood - Constitutional Vitals: Temp Pulse Resp BP Pulse Ox 98.3 F 64 18 125/57 97 03/14/17 05:57 03/14/17 08:37 03/14/17 08:37 03/14/17 05:57 03/14/17 08:27 General appearance: Present: mild distress Results - Labs CBC & Chem 7: 03/15/17 05:06 03/15/17 05:06 Labs: Laboratory Last Values WBC 5.3 K/mm3 (4.5-11.0) 03/11/17 07:22 RBC 4.10 M/mm3 (3.65-5.03) 03/11/17 07:22 Hgb 10.7 gm/dl (10.1-14.3) 03/11/17 07:22 Hct 35.0 % (30.3-42.9) 03/11/17 07:22 MCV 85 fl (79-97) 03/11/17 07:22 MCH 26 pg (28-32) L 03/11/17 07:22 MCHC 31 % (30-34) 03/11/17 07:22 RDW 17.8 % (13.2-15.2) H 03/11/17 07:22 Plt Count 216 K/mm3 (140-440) 03/11/17 07:22 Lymph % (Auto) 18.5 % (13.4-35.0) 03/07/17 13:18 [place] % (Auto) 3.1 % (0.0-7.3) 03/07/17 13:18 Eos % (Auto) 0.2 % (0.0-4.3) 03/07/17 13:18 Baso % (Auto) 0.7 % (0.0-1.8) 03/07/17 13:18 Lymph # 1.7 K/mm3 (1.2-5.4) 03/07/17 13:18 [place] # 0.3 K/mm3 (0.0-0.8) 03/07/17 13:18 Eos # 0.0 K/mm3 (0.0-0.4) 03/07/17 13:18 Baso # 0.1 K/mm3 (0.0-0.1) 03/07/17 13:18 Seg Neutrophils % 77.5 % (40.0-70.0) H 03/07/17 13:18 Seg Neutrophils # 6.9 K/mm3 (1.8-7.7) 03/07/17 13:18 PT 14.0 Sec. (12.2-14.9) 03/07/17 13:23 INR 1.03 (0.87-1.13) 03/07/17 13:23 APTT 32.0 Sec. (24.2-36.6) 03/07/17 13:23 Sodium 138 mmol/L (137-145) D 03/14/17 06:28 Potassium 4.5 mmol/L (3.6-5.0) 03/14/17 06:28 Chloride 101.3 mmol/L (98-107) 03/14/17 06:28 Carbon Dioxide 25 mmol/L (22-30) 03/14/17 06:28 Anion Gap 16 mmol/L 03/14/17 06:28 BUN 44 mg/dL (7-17) H 03/14/17 06:28 Creatinine 4.1 mg/dL (0.7-1.2) H 03/14/17 06:28 Estimated GFR 13 ml/min 03/14/17 06:28 BUN/Creatinine Ratio 11 % 03/14/17 06:28 Glucose 214 mg/dL (65-100) H 03/14/17 06:28 POC Glucose 195 (70-105) H 03/14/17 15:42 Hemoglobin A1c 7.3 % (4-6) H 03/09/17 05:53 Calcium 8.2 mg/dL (8.4-10.2) L 03/14/17 06:28 Phosphorus 3.60 mg/dL (2.5-4.5) 03/07/17 13:23 Magnesium 2.30 mg/dL (1.7-2.3) 03/07/17 13:23 Total Bilirubin 0.60 mg/dL (0.1-1.2) 03/07/17 13:23 Direct Bilirubin < 0.2 mg/dL (0-0.2) 03/07/17 13:23 AST 36 units/L (5-40) 03/07/17 13:23 ALT 43 units/L (7-56) 03/07/17 13:23 Alkaline Phosphatase 189 units/L (35-129) H 03/07/17 13:23 Total Creatine Kinase 35 units/L (30-135) 03/13/17 04:01 Troponin T 0.019 ng/mL (0.00-0.029) 03/07/17 13:18 NT-Pro-B Natriuret Pep 55931 pg/mL (0-900) H 03/07/17 13:18 Total Protein 7.2 g/dL (6.3-8.2) 03/07/17 13:23 Albumin 3.4 g/dL (3.9-5) L 03/07/17 13:23 Albumin/Globulin Ratio 0.9 % 03/07/17 13:23
[2017-03-14] MEDS: TYLENOL PO PRN (18:14)
[2017-03-14] MEDS: LEVEMIR SUB-Q SCH (22:54)
[2017-03-15 05:46] LABS: Basophils % (Auto) 1.1 % (0.0-1.8); Eosinophils % (Auto) 5.3 % (0.0-4.3); Hematocrit 33.4 % (30.3-42.9); Hemoglobin 10.9 gm/dl (10.1-14.3); Mean Corpuscular HGB Conc 33 % (30-34); Mean Corpuscular Hemoglobin 27 pg (28-32); Mean Corpuscular Volume 83 fl (79-97); Platelet Count 169 K/mm3 (140-440); Red Blood Count 4.04 M/mm3 (3.65-5.03); White Blood Count 5.1 K/mm3 (4.5-11.0)
[2017-03-15 06:01] LABS: Calcium 8.1 mg/dL (8.4-10.2); Chloride 104.2 mmol/L (98-107); Potassium 4.6 mmol/L (3.6-5.0)
[2017-03-15] MEDS: NOVOLOG SUB-Q SCH ×7 (08:00→22:23)
[2017-03-15] MEDS: PROVENTIL IH SCH ×3 (08:24→21:34)
--- NOTE | 2017-03-15 11:12 | Progress Note ---
Assessment and Plan 1. Acute decompensated chronic combined systolic and diastolic heart failure. 2. Ischemic cardiomyopathy LV ejection fraction 30-35% 3. Chronic renal failure stage IV 4. Coronary artery disease status post PCI and stenting. 5. Chronic obstructive pulmonary disease 6. Peripheral vascular disease 7. Type 2 diabetes mellitus 8. Essential hypertension. Plan. Patient is currently stable with continue diuresis in hospital and nephrology recommendation going forward.s Subjective Date of service: 03/15/17 Principal diagnosis: congestive heart failure Interval history: Patient feel sfine and denies any cardiac symptoms. Objective Vital Signs Temp Pulse Pulse Resp Resp BP BP 03/15/17 08:32 64 17 03/15/17 08:28 03/15/17 08:20 63 15 03/15/17 06:00 97.5 F L 62 18 117/51 03/15/17 00:00 98.1 F 58 L 18 95/40 03/14/17 22:53 61 130/56 03/14/17 22:00 03/14/17 21:10 65 16 03/14/17 20:59 61 16 03/14/17 20:15 60 03/14/17 15:00 60 18 03/14/17 14:50 61 18 Pulse Ox 03/15/17 08:32 03/15/17 08:28 94 03/15/17 08:20 03/15/17 06:00 97 03/15/17 00:00 95 03/14/17 22:53 03/14/17 22:00 95 03/14/17 21:10 03/14/17 20:59 96 03/14/17 20:15 03/14/17 15:00 03/14/17 14:50 - Physical Examination General: Appears Well, No Apparent Distress HEENT: Positive: PERRL, Normocephaly, Mucus Membranes Moist Neck: Positive: neck supple, trachea midline. Negative: JVD/HJR Cardiac: Positive: Regular Rate, S1/S2, S3, Dilated, Laterally Displaced Lungs: Positive: clear to auscultation, No Wheeze, Rales, Rhonchi Neuro: Positive: Grossly Intact Abdomen: Positive: Unremarkable, Soft, Active Bowel Sounds Extremities: Present: normal. Absent: edema - Labs and Meds CBC 03/15/17 Range/Units 05:06 WBC 5.1 (4.5-11.0) K/mm3 RBC 4.04 (3.65-5.03) M/mm3 Hgb 10.9 (10.1-14.3) gm/dl Hct 33.4 (30.3-42.9) % Plt Count 169 (140-440) K/mm3 Lymph # 1.5 (1.2-5.4) K/mm3 [place] # 0.4 (0.0-0.8) K/mm3 Eos # 0.3 (0.0-0.4) K/mm3 Baso # 0.1 (0.0-0.1) K/mm3 Comprehensive Metabolic Panel 03/15/17 Range/Units 05:06 Sodium 141 (137-145) mmol/L Potassium 4.6 (3.6-5.0) mmol/L Chloride 104.2 (98-107) mmol/L Carbon Dioxide 27 (22-30) mmol/L BUN 43 H (7-17) mg/dL Creatinine 4.2 H (0.7-1.2) mg/dL Glucose 116 H (65-100) mg/dL Calcium 8.1 L (8.4-10.2) mg/dL - Telemetry EKG Rhythm: Sinus Rhythm
[2017-03-15] MEDS: HALFPRIN EC PO SCH (11:25)
[2017-03-15] MEDS: IMDUR PO SCH (11:26)
[2017-03-15] MEDS: PROzac PO SCH (11:28)
[2017-03-15] MEDS: LOVENOX SUB-Q SCH (11:28)
[2017-03-15] MEDS: RANEXA ER PO SCH ×2 (11:29→22:22)
[2017-03-15] MEDS: NORVASC PO SCH (11:31)
[2017-03-15] MEDS: APRESOLINE PO SCH (11:32)
[2017-03-15] MEDS: COREG PO SCH ×2 (11:33→22:21)
--- NOTE | 2017-03-15 11:48 | Progress Note ---
Assessment and Plan KIM on CKD - Pt has atrophic rt kidney with grossly no obvious compensatory Hypertrophy of Lt kidney & hence probabaly has single poorly functional Lt kidney. May need Renal Nuclear scan to eval flow & fxn. Meanwhile, suggest to decrease BP meds & still hold diuretics to enhance renoperfusion. Pt also is not in acute CHF at this time (No JVD, No periph edema & good air entry per lungs), would therefore give cautious low rate IVF & f/u closely. Discussed with Hospitalist & Business Strategy Manager. Will f/u closely. Change Lovenox to Heparin Hypotension - Decreas BP meds as above CHF - Much improved since admission CAD - S/p stents., f/u per cardiology Subjective Date of service: 03/15/17 Principal diagnosis: congestive heart failure Objective - Vital Signs Vital signs: Vital Signs - 12hr 03/15/17 03/15/17 03/15/17 00:00 06:00 08:20 Temperature 98.1 F 97.5 F L Pulse Rate 58 L 62 Pulse Rate [ 63 Anterior Bilateral Throughout] Respiratory 18 18 Rate Respiratory 15 Rate [Anterior Bilateral Throughout] Blood Pressure 95/40 117/51 [Right] O2 Sat by Pulse 95 97 Oximetry 03/15/17 03/15/17 08:28 08:32 Temperature Pulse Rate Pulse Rate [ 64 Anterior Bilateral Throughout] Respiratory Rate Respiratory 17 Rate [Anterior Bilateral Throughout] Blood Pressure [Right] O2 Sat by Pulse 94 Oximetry - General Appearance General appearance: other (Awake & alert) Neck: no JVD Respiratory: Present: Other (Good air entry) Cardiology: regular, S1S2 Gastrointestinal: normal - Lab 03/15/17 05:06 03/15/17 05:06 Most recent lab results Calcium 8.1 mg/dL (8.4-10.2) L 03/15/17 05:06 Phosphorus 3.60 mg/dL (2.5-4.5) 03/07/17 13:23 Magnesium 2.30 mg/dL (1.7-2.3) 03/07/17 13:23
[2017-03-15] MEDS: HEPARIN SUB-Q SCH ×2 (17:02→22:20)
--- NOTE | 2017-03-15 17:32 | Progress Note ---
Assessment and Plan Assessment and plan: Acute hypoxic respiratory failure due to CHF exacerbation, continue oxygen supplementation She feels better, less shortness of breath Acute exacerbation of chronic systolic CHF, EF 30%, Ischemic cardiomyopathy cardiology input appreciated, continue optimize meds, s/p iv diuretics now on hold for KIM As per cardiology, patient be evaluated as an outpatient for AICD Pulmonary hypertension continue current meds and monitor clinically CAD (coronary artery disease) She denies chest pain, continue home medications medications Hypoglycemia/Diabetes Patient admits to hypoglycemia at home, hold lantus, only giving pre-meal insulin and SSI KIM on CKD -held Lasix and ACEI, avoid nephrotoxic medications -Renal function worsening. Creatinine today 4.2 - Discussed case with Dr. Watson. To start iv fluid at low rate. DVT prophylaxis with Lovenox Discussed with Patient and at bedside. History Interval history: Less shortness of breath, No chest pain patient and concerned about rising Creatinine level Hospitalist Physical - Physical exam Narrative exam: Gen Appearance: Not in acute distress,obese HEENT: normocephalic, atraumatic Neck: supple, no JVD Lungs: Clear to auscultation, no rales, no wheezing, Heart: S1 and S2 regular, no murmurs,no rubs or gallop, Abdomen: Soft , non tender, non distended, normal bowel sounds Extremity: No edema, no clubbing or cyanosis, Neuro : Awake,alert, oriented x 3, normal speech, moves all extremities Psych:Normal mood - Constitutional Vitals: Temp Pulse Resp BP Pulse Ox 97.5 F L 60 18 137/63 94 03/15/17 06:00 03/15/17 15:02 03/15/17 15:02 03/15/17 11:33 03/15/17 08:28 General appearance: Present: mild distress Results - Labs CBC & Chem 7: 03/15/17 05:06 03/15/17 05:06 Labs: Laboratory Last Values WBC 5.1 K/mm3 (4.5-11.0) 03/15/17 05:06 RBC 4.04 M/mm3 (3.65-5.03) 03/15/17 05:06 Hgb 10.9 gm/dl (10.1-14.3) 03/15/17 05:06 Hct 33.4 % (30.3-42.9) 03/15/17 05:06 MCV 83 fl (79-97) 03/15/17 05:06 MCH 27 pg (28-32) L 03/15/17 05:06 MCHC 33 % (30-34) 03/15/17 05:06 RDW 17.0 % (13.2-15.2) H 03/15/17 05:06 Plt Count 169 K/mm3 (140-440) 03/15/17 05:06 Lymph % (Auto) 30.3 % (13.4-35.0) 03/15/17 05:06 [place] % (Auto) 8.6 % (0.0-7.3) H 03/15/17 05:06 Eos % (Auto) 5.3 % (0.0-4.3) H 03/15/17 05:06 Baso % (Auto) 1.1 % (0.0-1.8) 03/15/17 05:06 Lymph # 1.5 K/mm3 (1.2-5.4) 03/15/17 05:06 [place] # 0.4 K/mm3 (0.0-0.8) 03/15/17 05:06 Eos # 0.3 K/mm3 (0.0-0.4) 03/15/17 05:06 Baso # 0.1 K/mm3 (0.0-0.1) 03/15/17 05:06 Seg Neutrophils % 54.7 % (40.0-70.0) 03/15/17 05:06 Seg Neutrophils # 2.8 K/mm3 (1.8-7.7) 03/15/17 05:06 PT 14.0 Sec. (12.2-14.9) 03/07/17 13:23 INR 1.03 (0.87-1.13) 03/07/17 13:23 APTT 32.0 Sec. (24.2-36.6) 03/07/17 13:23 Sodium 141 mmol/L (137-145) 03/15/17 05:06 Potassium 4.6 mmol/L (3.6-5.0) 03/15/17 05:06 Chloride 104.2 mmol/L (98-107) 03/15/17 05:06 Carbon Dioxide 27 mmol/L (22-30) 03/15/17 05:06 Anion Gap 14 mmol/L 03/15/17 05:06 BUN 43 mg/dL (7-17) H 03/15/17 05:06 Creatinine 4.2 mg/dL (0.7-1.2) H 03/15/17 05:06 Estimated GFR 13 ml/min 03/15/17 05:06 BUN/Creatinine Ratio 10 % 03/15/17 05:06 Glucose 116 mg/dL (65-100) H 03/15/17 05:06 POC Glucose 217 (70-105) H 03/15/17 11:39 Hemoglobin A1c 7.3 % (4-6) H 03/09/17 05:53 Calcium 8.1 mg/dL (8.4-10.2) L 03/15/17 05:06 Phosphorus 3.60 mg/dL (2.5-4.5) 03/07/17 13:23 Magnesium 2.30 mg/dL (1.7-2.3) 03/07/17 13:23 Total Bilirubin 0.60 mg/dL (0.1-1.2) 03/07/17 13:23 Direct Bilirubin < 0.2 mg/dL (0-0.2) 03/07/17 13:23 AST 36 units/L (5-40) 03/07/17 13:23 ALT 43 units/L (7-56) 03/07/17 13:23 Alkaline Phosphatase 189 units/L (35-129) H 03/07/17 13:23 Total Creatine Kinase 35 units/L (30-135) 03/13/17 04:01 Troponin T 0.019 ng/mL (0.00-0.029) 03/07/17 13:18 NT-Pro-B Natriuret Pep 84118 pg/mL (0-900) H 03/07/17 13:18 Total Protein 7.2 g/dL (6.3-8.2) 03/07/17 13:23 Albumin 3.4 g/dL (3.9-5) L 03/07/17 13:23 Albumin/Globulin Ratio 0.9 % 03/07/17 13:23
[2017-03-15] MEDS: TYLENOL PO PRN (19:07)
[2017-03-15 20:24] LABS: Bacteria,Urine 1+ /HPF (Negative); Bilirubin,Urine NEG (Negative); Blood,Urine NEG (Negative); Ketones,Urine NEG (Negative); Leukocyte Esterase,Urine SM (Negative); Nitrite,Urine NEG (Negative); Urobilinogen,Urine < 2.0 mg/dL (<2.0)
[2017-03-15] MEDS: LEVEMIR SUB-Q SCH (22:20)
[2017-03-16] MEDS: HEPARIN SUB-Q SCH ×4 (01:13→22:26)
[2017-03-16] MEDS: TYLENOL PO PRN ×2 (01:16→22:28)
[2017-03-16] MEDS: APRESOLINE PO SCH ×3 (01:24→22:27)
[2017-03-16] MEDS: NOVOLOG SUB-Q SCH ×7 (07:30→22:25)
[2017-03-16] MEDS: PROVENTIL IH SCH ×3 (08:22→20:53)
[2017-03-16 09:03] LABS: Albumin 2.9 g/dL (3.9-5); Albumin/Globulin Ratio 0.9 %; Bilirubin,Total 0.3 mg/dL (0.1-1.2); Chloride 101.2 mmol/L (98-107); Magnesium 2.4 mg/dL (1.7-2.3); Phosphorous 4.2 mg/dL (2.5-4.5); Potassium 4.3 mmol/L (3.6-5.0)
--- NOTE | 2017-03-16 10:19 | Progress Note ---
Assessment and Plan 1. Acute decompensated chronic combined systolic and diastolic heart failure. 2. Ischemic cardiomyopathy LV ejection fraction 30-35% 3. Acute on Chronic renal failure stage 3 4. Coronary artery disease status post PCI and stenting. 5. Chronic obstructive pulmonary disease 6. Peripheral vascular disease 7. Type 2 diabetes mellitus 8. Essential hypertension. Plan. Patient is currently stable currently on IV fluids with some improvement in Bun/ creat. Will continue to monitor closely. Guide against fluid overload and CHF. Subjective Date of service: 03/16/17 Principal diagnosis: congestive heart failure Interval history: Patient feel fine and denies any cardiac symptoms. Objective Vital Signs Temp Pulse Pulse Resp Resp BP BP 03/16/17 04:00 97.9 F 62 18 128/61 03/16/17 01:27 18 03/15/17 21:58 73 16 03/15/17 21:38 66 18 03/15/17 21:36 03/15/17 20:00 98.5 F 61 18 117/52 03/15/17 19:40 61 03/15/17 15:02 60 18 03/15/17 14:50 60 15 03/15/17 11:33 63 137/63 03/15/17 11:32 63 137/62 03/15/17 11:31 63 137/63 03/15/17 11:26 63 117/51 Pulse Ox 03/16/17 04:00 94 03/16/17 01:27 03/15/17 21:58 03/15/17 21:38 03/15/17 21:36 97 03/15/17 20:00 94 03/15/17 19:40 03/15/17 15:02 03/15/17 14:50 03/15/17 11:33 03/15/17 11:32 03/15/17 11:31 03/15/17 11:26 - Physical Examination General: Appears Well, No Apparent Distress HEENT: Positive: PERRL, Normocephaly, Mucus Membranes Moist Neck: Positive: neck supple, trachea midline. Negative: JVD/HJR Cardiac: Positive: Regular Rate, S1/S2, S3, PMI, Dilated, Laterally Displaced Lungs: Positive: clear to auscultation, No Wheeze, Rales, Rhonchi Neuro: Positive: Grossly Intact Abdomen: Positive: Unremarkable, Soft, Active Bowel Sounds Extremities: Present: normal. Absent: edema - Labs and Meds Cardiac Enzymes 03/16/17 Range/Units 07:55 AST 22 (5-40) units/L Comprehensive Metabolic Panel 03/16/17 Range/Units 07:55 Sodium 137 (137-145) mmol/L Potassium 4.3 (3.6-5.0) mmol/L Chloride 101.2 (98-107) mmol/L Carbon Dioxide 25 (22-30) mmol/L BUN 43 H (7-17) mg/dL Creatinine 3.8 H (0.7-1.2) mg/dL Glucose 129 H (65-100) mg/dL Calcium 8.0 L (8.4-10.2) mg/dL AST 22 (5-40) units/L ALT 20 (7-56) units/L Total Protein 6.0 L (6.3-8.2) g/dL Albumin 2.9 L (3.9-5) g/dL
--- NOTE | 2017-03-16 11:04 | Progress Note ---
Assessment and Plan KIM on CKD - Slightly improved Cr, continue low rate IVF but f/u Resp status closely Vitals - Caution with BP meds to allow adequate reoperfusion CHF - Much improved since admission. F/u CXR in am CAD - F/u per cardiology Subjective Date of service: 03/16/17 Principal diagnosis: congestive heart failure Objective - Vital Signs Vital signs: Vital Signs - 12hr 03/16/17 03/16/17 01:27 04:00 Temperature 97.9 F Pulse Rate 62 Respiratory 18 18 Rate Blood Pressure 128/61 [Right] O2 Sat by Pulse 94 Oximetry - General Appearance General appearance: other (Awake & alert) Neck: no JVD Respiratory: Present: Other (Good air entry) Cardiology: regular, S1S2, other (No LE Edema) Gastrointestinal: normoactive bowel sounds - Lab 03/15/17 05:06 03/16/17 07:55 Most recent lab results Calcium 8.0 mg/dL (8.4-10.2) L 03/16/17 07:55 Phosphorus 4.20 mg/dL (2.5-4.5) 03/16/17 07:55 Magnesium 2.40 mg/dL (1.7-2.3) H 03/16/17 07:55 Urine Creatinine 192.5 mg/dL (0.1-20.0) H 03/14/17 20:00 Urine Sodium 19 mEq/L 03/14/17 20:00
[2017-03-16] MEDS: IMDUR PO SCH (11:06)
[2017-03-16] MEDS: HALFPRIN EC PO SCH (11:09)
[2017-03-16] MEDS: PROzac PO SCH (11:10)
[2017-03-16] MEDS: RANEXA ER PO SCH ×2 (11:10→22:27)
[2017-03-16] MEDS: COREG PO SCH ×2 (11:11→22:27)
[2017-03-16] MEDS: NORVASC PO SCH (11:11)
[2017-03-16] MEDS: NACL 0.9% 1000 ML 1,000 ML IV SCH (11:23)
--- NOTE | 2017-03-16 15:28 | Progress Note ---
Hospitalist Physical - Constitutional Vitals: Temp Pulse Resp BP Pulse Ox 97.9 F 62 18 128/61 97 03/16/17 04:00 03/16/17 11:11 03/16/17 08:32 03/16/17 11:11 03/16/17 08:22 General appearance: Present: mild distress Results - Labs CBC & Chem 7: 03/15/17 05:06 03/16/17 07:55 Labs: Laboratory Last Values WBC 5.1 K/mm3 (4.5-11.0) 03/15/17 05:06 RBC 4.04 M/mm3 (3.65-5.03) 03/15/17 05:06 Hgb 10.9 gm/dl (10.1-14.3) 03/15/17 05:06 Hct 33.4 % (30.3-42.9) 03/15/17 05:06 MCV 83 fl (79-97) 03/15/17 05:06 MCH 27 pg (28-32) L 03/15/17 05:06 MCHC 33 % (30-34) 03/15/17 05:06 RDW 17.0 % (13.2-15.2) H 03/15/17 05:06 Plt Count 169 K/mm3 (140-440) 03/15/17 05:06 Lymph % (Auto) 30.3 % (13.4-35.0) 03/15/17 05:06 [place] % (Auto) 8.6 % (0.0-7.3) H 03/15/17 05:06 Eos % (Auto) 5.3 % (0.0-4.3) H 03/15/17 05:06 Baso % (Auto) 1.1 % (0.0-1.8) 03/15/17 05:06 Lymph # 1.5 K/mm3 (1.2-5.4) 03/15/17 05:06 [place] # 0.4 K/mm3 (0.0-0.8) 03/15/17 05:06 Eos # 0.3 K/mm3 (0.0-0.4) 03/15/17 05:06 Baso # 0.1 K/mm3 (0.0-0.1) 03/15/17 05:06 Seg Neutrophils % 54.7 % (40.0-70.0) 03/15/17 05:06 Seg Neutrophils # 2.8 K/mm3 (1.8-7.7) 03/15/17 05:06 PT 14.0 Sec. (12.2-14.9) 03/07/17 13:23 INR 1.03 (0.87-1.13) 03/07/17 13:23 APTT 32.0 Sec. (24.2-36.6) 03/07/17 13:23 Sodium 137 mmol/L (137-145) 03/16/17 07:55 Potassium 4.3 mmol/L (3.6-5.0) 03/16/17 07:55 Chloride 101.2 mmol/L (98-107) 03/16/17 07:55 Carbon Dioxide 25 mmol/L (22-30) 03/16/17 07:55 Anion Gap 15 mmol/L 03/16/17 07:55 BUN 43 mg/dL (7-17) H 03/16/17 07:55 Creatinine 3.8 mg/dL (0.7-1.2) H 03/16/17 07:55 Estimated GFR 14 ml/min 03/16/17 07:55 BUN/Creatinine Ratio 11 % 03/16/17 07:55 Glucose 129 mg/dL (65-100) H 03/16/17 07:55 POC Glucose 141 (70-105) H 03/16/17 12:14 Hemoglobin A1c 7.3 % (4-6) H 03/09/17 05:53 Calcium 8.0 mg/dL (8.4-10.2) L 03/16/17 07:55 Phosphorus 4.20 mg/dL (2.5-4.5) 03/16/17 07:55 Magnesium 2.40 mg/dL (1.7-2.3) H 03/16/17 07:55 Total Bilirubin 0.30 mg/dL (0.1-1.2) 03/16/17 07:55 Direct Bilirubin < 0.2 mg/dL (0-0.2) 03/07/17 13:23 AST 22 units/L (5-40) 03/16/17 07:55 ALT 20 units/L (7-56) 03/16/17 07:55 Alkaline Phosphatase 115 units/L (35-129) 03/16/17 07:55 Total Creatine Kinase 35 units/L (30-135) 03/13/17 04:01 Troponin T 0.019 ng/mL (0.00-0.029) 03/07/17 13:18 NT-Pro-B Natriuret Pep 55055 pg/mL (0-900) H 03/07/17 13:18 Total Protein 6.0 g/dL (6.3-8.2) L 03/16/17 07:55 Albumin 2.9 g/dL (3.9-5) L 03/16/17 07:55 Albumin/Globulin Ratio 0.9 % 03/16/17 07:55 Urine Color Yellow (Yellow) 03/14/17 20:00 Urine Turbidity Clear (Clear) 03/14/17 20:00 Urine pH 5.0 (5.0-7.0) 03/14/17 20:00 Ur Specific [place] 1.017 (1.003-1.030) 03/14/17 20:00 Urine Protein 100 mg/dl mg/dL (Negative) 03/14/17 20:00 Urine Glucose (UA) Neg mg/dL (Negative) 03/14/17 20:00 Urine Ketones Neg mg/dL (Negative) 03/14/17 20:00 Urine Blood Neg (Negative) 03/14/17 20:00 Urine Nitrite Neg (Negative) 03/14/17 20:00 Urine Bilirubin Neg (Negative) 03/14/17 20:00 Urine Urobilinogen < 2.0 mg/dL (<2.0) 03/14/17 20:00 Ur Leukocyte Esterase Sm (Negative) 03/14/17 20:00 Urine WBC (Auto) 21.0 /HPF (0.0-6.0) H 03/14/17 20:00 Urine RBC (Auto) 2.0 /HPF (0.0-6.0) 03/14/17 20:00 U Epithel Cells (Auto) 5.0 /HPF (0-13.0) 03/14/17 20:00 Urine Bacteria (Auto) 1+ /HPF (Negative) 03/14/17 20:00 Urine Yeast (Budding) 2+ /HPF 03/14/17 20:00 Urine Creatinine 192.5 mg/dL (0.1-20.0) H 03/14/17 20:00 Urine Sodium 19 mEq/L 03/14/17 20:00
[2017-03-16] MEDS: LEVEMIR SUB-Q SCH (22:24)
[2017-03-17 04:34] LABS: Basophils % (Auto) 0.8 % (0.0-1.8); Eosinophils % (Auto) 5.2 % (0.0-4.3); Hematocrit 34.5 % (30.3-42.9); Hemoglobin 11.1 gm/dl (10.1-14.3); Mean Corpuscular HGB Conc 32 % (30-34); Mean Corpuscular Hemoglobin 27 pg (28-32); Mean Corpuscular Volume 83 fl (79-97); Platelet Count 181 K/mm3 (140-440); Red Blood Count 4.18 M/mm3 (3.65-5.03); Red Cell Distribution Width 16.9 % (13.2-15.2); White Blood Count 4.8 K/mm3 (4.5-11.0)
[2017-03-17 04:41] LABS: Chloride 104.2 mmol/L (98-107); Potassium 4.5 mmol/L (3.6-5.0)
[2017-03-17] MEDS: HEPARIN SUB-Q SCH (05:50)
[2017-03-17] MEDS: NACL 0.9% 1000 ML 1,000 ML IV SCH (05:51)
[2017-03-17 05:57] VITALS: BP 131/60
--- NOTE | 2017-03-17 07:38 | Progress Note ---
Assessment and Plan - Patient Problems (1) KIM (acute kidney injury) Status: Acute Plan to address problem: Acute kidney injury superimposed on CKD stage 4 in the setting of CHF exacerbation. Creatinine level is improving. Patient can go home from renal stand point. Patient has an appt with me next week. Labs 03/21. (2) CHF (congestive heart failure) Status: Acute Qualifiers: Congestive heart failure type: combined Congestive heart failure chronicity : acute on chronic Qualified Code(s): I50.43 - Acute on chronic combined systolic (congestive) and diastolic (congestive) heart failure Plan to address problem: Followed by Cards. (3) Accelerated hypertension Status: Acute Plan to address problem: BP is better now. (4) Anemia associated with chronic renal failure Status: Chronic Subjective Date of service: 03/17/17 Principal diagnosis: congestive heart failure Interval history: Patient is feeling better. Objective - Vital Signs Vital signs: Vital Signs - 12hr 03/16/17 03/16/17 03/16/17 20:54 20:55 21:05 Temperature Pulse Rate Pulse Rate [ 61 61 Anterior Bilateral Throughout] Respiratory Rate Respiratory 16 16 Rate [Anterior Bilateral Throughout] Blood Pressure Blood Pressure [Right] O2 Sat by Pulse 94 Oximetry 03/16/17 03/16/17 03/17/17 22:00 22:27 01:00 Temperature 97.6 F Pulse Rate 60 64 61 Pulse Rate [ Anterior Bilateral Throughout] Respiratory 20 Rate Respiratory Rate [Anterior Bilateral Throughout] Blood Pressure 125/56 Blood Pressure 120/53 [Right] O2 Sat by Pulse 98 Oximetry 03/17/17 04:40 Temperature 97.5 F L Pulse Rate 62 Pulse Rate [ Anterior Bilateral Throughout] Respiratory 18 Rate Respiratory Rate [Anterior Bilateral Throughout] Blood Pressure Blood Pressure 131/60 [Right] O2 Sat by Pulse 97 Oximetry - General Appearance General appearance: well-developed, well-nourished, appears stated age, other ( no distress) EENT: ATNC, PERRL, mucous membranes moist, hearing intact, vision intact Neck: supple Respiratory: Present: Clear to Ascultation Cardiology: regular, S1S2, no murmurs Gastrointestinal: normoactive bowel sounds, no tenderness, no distended Integumentary: no rash Neurologic: no focal deficit, no asterixis, alert and oriented x3, CN 3-12 intact Musculoskeletal: other (no edema) Psychiatric: mood/affect appropriate, cooperative - Lab 10/23/17 03:50 03/17/17 03:50 Most recent lab results Calcium 8.0 mg/dL (8.4-10.2) L 03/17/17 03:50 Phosphorus 4.20 mg/dL (2.5-4.5) 03/16/17 07:55 Magnesium 2.40 mg/dL (1.7-2.3) H 03/16/17 07:55 Urine Creatinine 192.5 mg/dL (0.1-20.0) H 03/14/17 20:00 Urine Sodium 19 mEq/L 03/14/17 20:00
--- NOTE | 2017-03-17 08:27 | XRay Report ---
CHEST X-RAY, 2 VIEWS: HISTORY: Followup CHF Compared to 03/07/17. Mild cardiomegaly and central pulmonary venous congestion are stable. No large pleural effusion, consolidation or pneumothorax is appreciated. The bony structures are intact. IMPRESSION: Cardiomegaly and pulmonary venous congestion.
[2017-03-17] MEDS: NOVOLOG SUB-Q SCH ×2 (09:08)
--- NOTE | 2017-03-17 09:30 | Discharge Summary ---
Providers - Providers Date of Admission: 03/07/17 15:46 Date of discharge: 03/17/17 Attending physician: SWATI COTE 03/11/17 10:55 Physical Therapy Evaluation and Treat [CONS] Routine Comment: Reason For Exam: placement 03/11/17 11:06 Consult to Physician [CONS] Routine Consulting Provider: RIGOBERTO KENDRICK Reason For Exam: kaiden ON [facility] Place consult to:: Dr Kendrick Notified:: office Phone number called:: [phone] Was contact made?: Yes If yes, spoke with:: ayesha Time called:: 11:45 Primary care physician: [employer] Hospitalization Condition: Good Disposition: DC-01 TO HOME OR SELFCARE - Discharge Diagnoses (1) Acute respiratory failure Status: Acute Qualifiers: Respiratory failure complication: R Core Measure Documentation - Palliative Care Palliative Care/ Comfort Measures: Not Applicable - Core Measures Any of the following diagnoses?: heart failure Exam - Constitutional Vitals: Temp Pulse Resp BP Pulse Ox 97.5 F L 62 18 131/60 97 03/17/17 04:40 03/17/17 04:40 03/17/17 04:40 03/17/17 04:40 03/17/17 04:40 Plan Activity: advance as tolerated Diet: low fat, low cholesterol, low salt, renal Additional Instructions: 1.Follow up with PCP in 1 week. 2.Follow up with Dr. Kendrick in 1 week Follow up with: PRIMARY CARE, [Primary Care Provider] - 3-5 Days Prescriptions: amLODIPine [Norvasc] 10 mg PO DAILY #30 tablet Carvedilol [Coreg] 12.5 mg PO BID #60 tablet
[2017-03-17] MEDS: PROzac PO SCH (09:44)
[2017-03-17] MEDS: RANEXA ER PO SCH (09:46)
[2017-03-17] MEDS: IMDUR PO SCH (09:47)
[2017-03-17] MEDS: HALFPRIN EC PO SCH (09:47)
[2017-03-17] MEDS: NORVASC PO SCH (09:47)
[2017-03-17] MEDS: COREG PO SCH (09:47)
[2017-03-17] MEDS: APRESOLINE PO SCH (09:47)
[2017-03-17] MEDS: PROVENTIL IH SCH (09:50)
--- NOTE | 2017-03-17 12:36 | Progress Note ---
Assessment and Plan Acute systolic congestive heart failure Hx of Ischemic cardiomyopathy EF 30-35% 05/2016 Hx of CAD patent RCA stents on [facility] 05/2016 Moderate to severe Pulmonary hypertension Chronic renal failure diuretics held Hypertension Diabetes mellitus LBBB, chronic Continue medical therapy for coronary disease and systolic heart failure. Conservative cardiac management. Subjective Date of service: 03/17/17 Principal diagnosis: congestive heart failure Interval history: Patient denies shortness of breath. No distress noted. For planned discharge home today. Objective Vital Signs Temp Pulse Pulse Resp Resp BP BP 03/17/17 10:09 61 18 03/17/17 10:00 62 03/17/17 09:53 03/17/17 09:51 61 18 03/17/17 09:47 62 131/60 03/17/17 04:40 97.5 F L 62 18 131/60 03/17/17 01:00 97.6 F 61 20 120/53 03/16/17 22:27 64 125/56 03/16/17 22:00 60 03/16/17 21:05 61 16 03/16/17 20:55 03/16/17 20:54 61 16 03/16/17 19:33 97.9 F 62 20 125/56 03/16/17 14:58 60 18 03/16/17 14:48 61 18 Pulse Ox 03/17/17 10:09 03/17/17 10:00 03/17/17 09:53 95 03/17/17 09:51 03/17/17 09:47 03/17/17 04:40 97 03/17/17 01:00 98 03/16/17 22:27 03/16/17 22:00 03/16/17 21:05 03/16/17 20:55 94 03/16/17 20:54 03/16/17 19:33 96 03/16/17 14:58 03/16/17 14:48 - Physical Examination General: No Apparent Distress HEENT: Positive: PERRL Neck: Positive: trachea midline Cardiac: Positive: Reg Rate and Rhythm Neuro: Positive: Grossly Intact - Labs and Meds CBC 03/17/17 Range/Units 03:50 WBC 4.8 (4.5-11.0) K/mm3 RBC 4.18 (3.65-5.03) M/mm3 Hgb 11.1 (10.1-14.3) gm/dl Hct 34.5 (30.3-42.9) % Plt Count 181 (140-440) K/mm3 Lymph # 1.2 (1.2-5.4) K/mm3 [place] # 0.4 (0.0-0.8) K/mm3 Eos # 0.3 (0.0-0.4) K/mm3 Baso # 0.0 (0.0-0.1) K/mm3 Comprehensive Metabolic Panel 03/17/17 Range/Units 03:50 Sodium 141 (137-145) mmol/L Potassium 4.5 (3.6-5.0) mmol/L Chloride 104.2 (98-107) mmol/L Carbon Dioxide 25 (22-30) mmol/L BUN 40 H (7-17) mg/dL Creatinine 3.5 H (0.7-1.2) mg/dL Glucose 163 H (65-100) mg/dL Calcium 8.0 L (8.4-10.2) mg/dL
== END 2017-03-17 12:01 | disposition home health service (06) | DRG 291 ==
LOC: ED 12:47 → UNDOADMIN 15:07 → 3A 15:07 → 4A 15:46
PROVIDERS: ADMIT Internal Medicine; ATTEND Internal Medicine
DX: I13.0 Hypertensive heart and chronic kidney disease with heart failure and stage 1 through stage 4 chronic kidney disease, or unspecified chronic kidney disease (principal); J96.01 Acute respiratory failure with hypoxia; I50.43 Acute on chronic combined systolic (congestive) and diastolic (congestive) heart failure; N18.4 Chronic kidney disease, stage 4 (severe); N17.9 Acute kidney failure, unspecified; I25.10 Atherosclerotic heart disease of native coronary artery without angina pectoris; I27.20 Pulmonary hypertension, unspecified; E11.22 Type 2 diabetes mellitus with diabetic chronic kidney disease; I25.5 Ischemic cardiomyopathy; D63.1 Anemia in chronic kidney disease; E66.9 Obesity, unspecified; E11.649 Type 2 diabetes mellitus with hypoglycemia without coma; I44.7 Left bundle-branch block, unspecified; E11.51 Type 2 diabetes mellitus with diabetic peripheral angiopathy without gangrene; J44.9 Chronic obstructive pulmonary disease, unspecified; N26.1 Atrophy of kidney (terminal); Z88.2 Allergy status to sulfonamides; Z79.82 Long term (current) use of aspirin; Z79.4 Long term (current) use of insulin; Z68.36 Body mass index [BMI] 36.0-36.9, adult; Z79.899 Other long term (current) drug therapy; Z95.5 Presence of coronary angioplasty implant and graft
CPT/HCPCS: 36415; 71010; 71020; 76770; 80048; 80053; 80074; 81001; 82550; 82570; 82962; 83036; 83735; 83880; 84100; 84300; 84484; 85025; 85027; 85610; 85730; 94640; 94760; 96374; A9270-GY; J1644; J1650; J1815; J1818; J1940; J7030